=== PATIENT | male | born 1975 | race Caucasian/White ===

== ENCOUNTER → 2021-05-09 09:16 | Outpatient (CLI) | payer BC, SELFPAY ==
--- NOTE | ~2021-05-09 | MR_ITS ---
EXAMINATION: MR lumbar spine wo con EXAM DATE: 05/09/2021 10:10 INDICATION: Back pain, unspecified back location mid/low back pain x 2-3wks, no trauma, no ca . TECHNIQUE: Multi-sequential, multiplanar MR images of the lumbar spine were obtained without contrast . Sagittal T1, T2, T2 fat saturation images. Axial T2 weighted images. There is no prior study for comparison. FINDINGS: There is mild loss of the L5-S1 disc height with annular fissure. Minimal disc disease L3-4 and L4-5. The vertebral body and disc heights are otherwise well maintained. The vertebral bodies ar e aligned in the AP dimension. There are no suspicious marrow signal abnormalities. The conus medulla ris terminates at the T12-L1 level and has normal signal intensity and morphology. Paraspinal soft t issue is unremarkable. Level by level evaluation: T12-L1: Disc does not extend beyond the endplate margin. Facet arthropathy: Mild. Neural foraminal stenosis: No stenosis. Central canal stenosis: No stenosis. L1-L2: Disc does not extend beyond the endplate margin. Facet arthropathy: Mild. Neural foraminal stenosis: No stenosis. Central canal stenosis: No stenosis. L2-L3: Disc does not extend beyond the endplate margin. Facet arthropathy: Mild. Neural foraminal stenosis: No stenosis. Central canal stenosis: No stenosis. L3-L4: There is a minimal diffuse disc bulge. Facet arthropathy: Mild. Neural foraminal stenosis: Minimal bilateral. Central canal stenosis: No stenosis. L4-L5: There is a mild diffuse disc bulge. Facet arthropathy: Mild to moderate. Neural foraminal stenosis: Mild to moderate bilateral. Central canal stenosis: Mild. L5-S1: There is a mild to moderate diffuse disc bulge asymmetric to the right Facet arthropathy: Mild. Neural foraminal stenosis: Mild to moderate left, mild right. Central canal stenosis: No stenosis. IMPRESSION: 1. Mild to moderate lower lumbar spondylosis. Reviewed, dictated and finalized at location A. ATOR SPECIALIST
== END ==
DX: M54.9 Dorsalgia, unspecified (principal); M47.816 Spondylosis without myelopathy or radiculopathy, lumbar region
CPT/HCPCS: 72148

== ENCOUNTER 2021-06-03 17:15 | Emergency (ER) | payer BC, SELFPAY ==
--- NOTE | ~2021-06-03 | XR_ITS ---
EXAMINATION: XR chest 2V DATE: 06/03/2021 17:47 INDICATION: 3 days of cough and fever TECHNIQUE: PA and lateral views of the chest were obtained. COMPARISON: None FINDINGS: Subtle opacities with associated bronchial wall thickening in the infrahilar right lower lobe. Remain rodolfo the lungs are clear. No pleural effusion or pneumothorax. The cardiomediastinal silhouette is nor mal. Visualized bones and soft tissues are unremarkable. IMPRESSION: 1. Bronchial wall thickening and subtle airspace opacities in the right lower lobe suspicious for pne umonia. Reviewed, dictated and finalized at location H. PRODUCTION WORKER IMPRESSION: 1. Bronchial wall thickening and subtle airspace opacities in the right lower l obe suspicious for pneumonia.
[2021-06-03 17:26] VITALS: BP 154/84; PULSE 72; RESP 18; TEMP 37.2; O2SAT 99
--- NOTE | 2021-06-03 17:30 | ED.URI ---
HPI - URI/Sore Throat General Chief Complaint: Upper Respiratory Infection Stated Complaint: Cough,Stuffy Nose, Time Seen by Provider: 06/03/21 17:30 Source: patient Mode of arrival: ambulatory Limitations: no limitations History of Present Illness HPI Narrative: Tu Armas is a 46 yo male with a PMH of HTN, GERD, [facility] with complaints of cough and fever since Tuesday. He has nasal congestion and states that when he sits up perfectly straight his cough is controlled but when he tries to lay down he is coughing frequently and cannot take a deep breath without coughing, sometimes is almost spasm and cannot stop coughing. He has been febrile on Tuesday and has not checked his temperature on Tuesday was low-grade here. No nausea vomiting or diarrhea last Covid vaccination was March 10. Related Data Home Medications Medication Instructions Recorded Confirmed pantoprazole 40 mg PO DAILY 06/03/21 06/03/21 Allergies Allergy/AdvReac Type Severity Reaction Status Date / Time No Known Allergies Allergy Verified 06/03/21 17:22 Review of Systems Review of Systems: CONSTITUTIONAL: Has fever, chills, sweats. EYES: Denies visual changes, redness, discharge. ENT: As rhinorrhea, has congestion, sore throat, otalgia. CARDIOVASCULAR: Denies chest pain, palpitations, edema. RESPIRATORY: Denies dyspnea, wheezing, has cough GASTROINTESTINAL: Denies abdominal pain, nausea, vomiting, diarrhea. GENITOURINARY: Denies dysuria, hematuria, abnormal discharge SKIN: Denies rash or itching. NEUROLOGIC: Denies numbness, or focal weakness. PSYCHIATRIC: Denies anxiety or depression. [facility] Past Medical History Medical History GERD (gastroesophageal reflux disease) HTN (hypertension) Social History Social History (Updated 06/03/21 @ 17:46 by Yadira Calzada CNP) Smoking packs per day: 1 Smoking cigarettes per day: 20.0 Smoking status: Current every day smoker Tobacco type: cigarettes Alcohol intake: current Comments At time of signature, I agree with nursing past medical, surgical, social and family history. There is no relevant family history pertinent to the presenting complaint. Exam Narrative: GENERAL: This is a well-nourished, well-developed patient, in moderate distress. HEAD: normocephalic, atraumatic. EYES: Sclera clear/white. Vision is grossly intact. EARS: External ears normal, auditory canals erythema and without drainage, has bulging TMs. hearing grossly intact. NOSE: External nose normal without nasal discharge, nares without redness, has rhinorrhea. THROAT: Mucous membranes moist, posterior pharynx erythema NECK: Neck supple, non-tender CARDIOVASCULAR: Regular rate and rhythm without murmurs, gallops, or rubs. RESPIRATORY: Coarse to auscultation. Breath sounds equal bilaterally. No wheezes, rales, or rhonchi. GASTROINTESTINAL: Abdomen soft, SKIN: warm, intact with no suspicious lesions or rash, good texture and turgor. NEURO: awake, alert, and oriented to person, place and time. There were no obvious focal neurologic abnormalities. Steady gait EXTREMITIES: Normal range of motion. BACK: Nontender without deformity Course Course Emergency Course: Patient comes with a cough fever and general congestion since Tuesday; has tried using NyQuil and Delsym without success Chest x-ray done- possible RLL pneumonia-microwall thickening and subtle airspace opacities in right lower lobe suspicious for pneumonia Strep done-negative Flu done- negative started on zithromax, steroids, tessalon perles, zyrtec. codeine cough syrup Vital Signs Vital signs: Vital Signs Temperature 99.0 F 06/03/21 17:26 Pulse Rate 72 06/03/21 17:26 Respiratory Rate 18 06/03/21 17:26 Blood Pressure 154/84 H 06/03/21 17:26 Pulse Oximetry 99 06/03/21 17:26 Temperature 99.0 F 06/03/21 17:26 Pulse Rate 72 06/03/21 17:26 Respiratory Rate 18 06/03
== END 2021-06-03 18:10 | disposition home or self-care (01) ==
PROVIDERS: Emergency Provider Nurse Practitioner; PCP Internal Medicine
DX: J18.9 Pneumonia, unspecified organism (principal); K21.9 Gastro-esophageal reflux disease without esophagitis; I10 Essential (primary) hypertension; F17.210 Nicotine dependence, cigarettes, uncomplicated
CPT/HCPCS: 71046; 87081; 87804; 87880; 99203; G0463

== ENCOUNTER 2021-08-19 18:01 | Emergency (ER) | payer BC, SELFPAY ==
--- NOTE | ~2021-08-19 | XR_ITS ---
EXAMINATION: XR chest 2V DATE: 08/19/2021 18:50 INDICATION: Weak and a half of cough TECHNIQUE: frontal and lateral views of the chest were obtained. COMPARISON: Chest radiograph dated 06/03/2021 FINDINGS: The lungs remain clear with no focal airspace opacities, pulmonary edema, pleural effusion or pneumot horax. The cardiomediastinal silhouette is normal. Surgical clips the upper abdomen which may relate to prior cholecystectomy. IMPRESSION: 1. No acute cardiopulmonary disease. Reviewed, dictated and finalized at location A. NT SACK BREAKER
--- NOTE | 2021-08-19 18:05 | ED.URI ---
HPI - URI/Sore Throat General Chief Complaint: Upper Respiratory Infection Stated Complaint: cough Time Seen by Provider: 08/19/21 18:31 Source: patient and RN notes reviewed Mode of arrival: ambulatory Limitations: no limitations History of Present Illness HPI Narrative: 46-year-old male presents concern for cough for 1-1/2 weeks. He reports using leftover prescription cough medicine which helps diminish the cough, however he is on the side of that. He denies nasal congestion, rhinorrhea. Reports sometimes when he coughs hard it caused him to have a headache. He denies any chest pain, shortness of breath. He reports history of pneumonia in May. He reports he is a smoker. He denies body aches, fever, chills, sweats. MD elicited complaint: cough Related Data Home Medications Medication Instructions Recorded Confirmed dextroamphetamine-amphetamine 30 mg PO QID 08/19/21 08/19/21 pantoprazole 40 mg PO DAILY 08/19/21 08/19/21 testosterone cypionate 6 mg DIRECTED 08/19/21 08/19/21 Allergies Allergy/AdvReac Type Severity Reaction Status Date / Time No Known Allergies Allergy Verified 08/19/21 18:30 Review of Systems Review of Systems: CONSTITUTIONAL: Denies malaise, chills, sweats, or fever. EYES: Denies visual changes, redness, or discharge. ENT: Denies rhinorrhea, congestion, sinus pain, otalgia and sore throat. CARDIOVASCULAR: Denies chest pain, palpitations, or edema. RESPIRATORY: Reports cough. Denies dyspnea. GASTROINTESTINAL: Denies abdominal pain, nausea, vomiting, diarrhea SKIN: Denies rash or itching. MUSCULOSKELETAL: Denies myalgia. NEUROLOGIC: Report occasional headache. All systems reviewed & are unremarkable except as noted in HPI and below PMFSH Past Medical History Medical History GERD (gastroesophageal reflux disease) HTN (hypertension) Social History Social History (Updated 06/03/21 @ 17:46 by Yadira Calzada CNP) Smoking packs per day: 1 Smoking cigarettes per day: 20.0 Smoking status: Current every day smoker Tobacco type: cigarettes Alcohol intake: current Comments At time of signature, agree with nursing past medical, surgical, social and family history. There is no relevant family history pertinent to the presenting complaint Exam Narrative: GENERAL: Well-appearing, well-nourished, and in no acute distress. HEAD: Normocephalic EYES: PERRLA, conjunctivae clear ENT: Nares clear. Mucous membranes moist. TM pearly chaudhry with sharp light reflex bilaterally; no tragal tenderness. Oropharynx not erythematous without lesions. Tonsils not enlarged and without exudate, no drooling, no hoarseness, no trismus, uvula midline. NECK: Supple. No lymphadenopathy CHEST: Clear to auscultation, breath sounds equal. No wheezing, rhonchi, rales, or stridor. No respiratory distress, speaks in full sentences. HEART: Regular rate and rhythm. No murmur heard. SKIN: Warm, dry, no rash. NEURO: Alert and oriented x3. PSYCH: Normal mood and affect Course Course Emergency Course: Patient is aware of diagnosis, understands and agrees to treatment plan. Anticipatory guidance given. Patient agrees to follow-up as directed and is aware of reasons to seek care at the emergency department. Portions of this record may have been created with voice recognition software Level of Care: Express Care Visit Vital Signs Vital signs: Vital Signs Temperature 98.7 F 08/19/21 18:15 Pulse Rate 71 08/19/21 18:15 Respiratory Rate 18 08/19/21 18:15 Blood Pressure 155/86 H 08/19/21 18:15 Pulse Oximetry 99 08/19/21 18:15 Temperature 98.7 F 08/19/21 18:15 Pulse Rate 71 08/19/21 18:15 Respiratory Rate 18 08/19/21 18:15 Blood Pressure 155/86 H 08/19/21 18:15 Pulse Oximetry 99 08/19/21 18:15 Reviewed. MDM - URI/Sore Throat MDM Narrative Medical decision making narrative: Differential diagnosis considered: Jay virus, strep
[2021-08-19 18:15] VITALS: BP 155/86; PULSE 71; RESP 18; TEMP 37.1; O2SAT 99
== END 2021-08-19 19:08 | disposition home or self-care (01) ==
PROVIDERS: Emergency Provider Nurse Practitioner
DX: J40 Bronchitis, not specified as acute or chronic (principal); K21.9 Gastro-esophageal reflux disease without esophagitis; I10 Essential (primary) hypertension; F17.210 Nicotine dependence, cigarettes, uncomplicated
CPT/HCPCS: 71046; 99213; G0463

== ENCOUNTER 2024-05-25 16:13 | Emergency (ER) | payer BC, SELFPAY ==
--- NOTE | 2024-05-25 16:16 | ED.URI ---
HPI - URI/Sore Throat General Chief Complaint: Upper Respiratory Infection Stated Complaint: Head Pressure / cough Time Seen by Provider: 05/25/24 16:15 Source: patient Mode of arrival: ambulatory Limitations: no limitations History of Present Illness HPI Narrative: Tu is a 49-year-old male patient presenting to the clinic today with complaints of head congestion and cough x1 day. He reports symptoms started last night. No fevers, chills, or body aches. He denies any chest pain or shortness of breath. States he has head congestion, cough occasionally with runny nose and watery eyes. Has tried taking Mucinex and ibuprofen. MD elicited complaint: sore throat and nasal congestion Related Data Home Medications ?Medication ?Instructions ?Recorded ?Confirmed ?Last Taken ?Type pantoprazole 40 mg tablet,delayed 40 mg PO DAILY 08/19/21 05/25/24 Unknown History release testosterone cypionate 200 mg/mL 6 mg IM DIRECTED 08/19/21 05/25/24 Unknown History intramuscular oil nebivolol 10 mg tablet mg 05/25/24 Unknown History Allergies Allergy/AdvReac Type Severity Reaction Status Date / Time No Known Allergies Allergy Verified 05/25/24 16:24 Review of Systems Review of Systems: Pertinent positives per HPI. Patient denies any fever, chills, rash, headache, visual changes, dizziness, shortness of breath, chest pain, palpitations, nausea, vomiting, diarrhea, constipation, abdominal pain, or any urinary issues. [facility] Past Medical History Medical History GERD (gastroesophageal reflux disease) HTN (hypertension) Social History Social History Smoking packs per day: 1 Smoking cigarettes per day: 20.0 Smoking status: Current every day smoker Tobacco type: cigarettes Alcohol intake: current Comments At the time of my signature, I reviewed and agree with the nursing past medical, surgical, social, and family history. There is no relevant family history pertinent to the patient complaint. Exam Narrative: General: Well-developed, well nourished, in no apparent distress Head: Normocephalic, atraumatic Eyes: Pupils equally round and reactive to light bilaterally, EOM intact, sclera and conjunctive clear, no discharge, lids normal Ears: TMs intact and clear, ear canals clear, no drainage, grossly hearing normal. Nose: Nares patent, clear nasal discharge, no inflammation, no sinus tenderness. Mouth: Oral pharynx without lesions or masses, good dentition, MMM. Postnasal drip Neck: Supple, trachea midline, no enlargement of anterior or posterior cervical nodes, no thyroid masses or goiter palpable. Cardio: Regular rate and rhythm, s1 and s2 normal, no murmur appreciated. Resp: Clear to auscultation bilaterally, no rhonchi, rales, wheezing or rubs Course Course Emergency Course: Portions of this record may have been created with voice recognition software. Level of Care: Express Care Visit Vital Signs Vital signs: Vital signs reviewed MDM - URI/Sore Throat MDM Narrative Medical decision making narrative: At the time of visit patient is resting comfortably on the exam table. Patient appears to be nontoxic. Labs: COVID and influenza testing was performed. Testing was negative. Plan: I suspect patient has URI. Supportive measures were discussed with the patient and they voiced understanding discharge instructions and agrees to treatment plan. Return precautions reviewed Differential Diagnosis Differential diagnosis: Likely upper respiratory infection, otitis media, sinusitis, viral infection, bronchitis, influenza, pharyngitis and other (COVID) Discharge Plan Discharge Clinical Impression: Upper respiratory infection Qualifiers: URI type: unspecified URI Qualified Code(s): J06.9 - Acute upper respiratory infection, unspecified Patient Disposition: Home, Self-Care Condition: Stable Instructions: Antibiotic Form, Cold Symptoms (ED) Additional Instructions: COVID and influenza testing was negative in the clinic today. No sign of bacterial infection. Take prescription medications only as prescribed-prednisone Increase fluids and stay well hydrated Tylenol/motrin for pain/fever Flonase and OTC antihistamines as directed Vicks vapor rub to open sinuses Sinus rinses for congestion Cepacol spray, cough drops, throat lozenges, warm tea with honey/lemon, gargle salt water to soothe throat BRAT diet for diarrhea Clear liquids x 24 hours then advance as tolerated for nausea/vomiting Go to the ED if you develop a worsening in your condition- high fever not controlled by Tylenol or Motrin, dehydration, weakness, lethargy, shortness of breath, or chest pain. Follow up with your PCP in 3-5 days if symptoms persist. Patient Language: Indonesian Prescriptions: New prednisone 20 mg tablet 40 mg PO DAILY 5 Days Qty: 10 0RF No Action pantoprazole 40 mg tablet,delayed release (DR/EC) 40 mg PO DAILY testosterone cypionate 200 mg/mL oil 6 mg IM DIRECTED nebivolol 10 mg tablet Follow-up/Referrals: PHYSICIAN,[facility] [Primary Care Provider] - Time of Disposition: 16:44 Quality NIHSS Nursing Documentation ED NIHSS nursing documentation: reviewed/agree
[2024-05-25 16:20] VITALS: BP 146/72; PULSE 66; RESP 18; TEMP 36.7; O2SAT 100
[2024-05-25 17:56] LABS: EDCOVIDSCREEN Negative (Negative); EDINFLUASCREEN Negative (Negative); EDINFLUBSCREEN Negative (Negative)
--- OUTSIDE RECORDS SUMMARY | 2024-05-29 04:28 | XMS_ITS | Encounter Summary ---
Author Organization [facility] Address [address] [address] [place] [address] Care Team Providers Care Body Art Technician Name Role Phone Tu Green MD Primary Care Provider [phone] Encounter Details Date Type Department Care Team (Latest Contact Info) Description 04/04/2024 Travel Social History Tobacco Use Types Packs/Day Years Used Date Smoking Tobacco: Never Assessed Sex and Gender Information Value Date Recorded Sex Assigned at Not on file Gender Identity Not on file Sexual Orientation Not on file documented as of this encounter Plan of Treatment Not on file documented as of this encounter Visit Diagnoses Not on filedocumented in this encounter Care Teams Body Art Technician Relationship Specialty Start Date End Date Tu Green MD [address] [place] [address] PCP - General Internal Medicine 01/11/19 documented as of this encounter
--- OUTSIDE RECORDS SUMMARY | 2024-05-29 04:28 | XMS_ITS | Encounter Summary ---
Author Organization [facility] Address [address] [place] [address] Care Team Providers Care Dairy Equipment Specialist Name Role Phone Tu Green MD Primary Care Provider [phone] Reason for Visit * Reason Comments Imm Inj tdap Encounter Details Date Type Department Care Team (Late st Contact Info) Description 01/11/2019 7:00 PM CDT Office Visit [facility] [address] [place] [id number] Provider, [facility] Need for Tdap vaccination (Primary Dx) Social History Tobacco Use Types Packs/Day Years Used Date Smoking Tobacco: Never Assessed Sex and Gender Information Value Date Recorded Sex Assigned at Not on file Gender Identity Not on file Sexual Orientation Not on file documented as of this encounter Progress Notes * Esme Millan, BOBBIN CLEANER HAND-SALES SUPPORT ADVISOR - 01/11/2019 5:48 PM CDT [facility] Tu Armas is a 43 year old male who presents for evaluation: Chief Complaint Patient presents with ??? Imm Inj tdap Primary Care Physician is Tu Green MD. SUBJECTIVE: HPI Comments: Patient is here for a TDAP vaccine because he is going to be a new grandfather soon. No past medical history on file. No current outpatient prescriptions on file prior to visit. No current facility-administered medications on file prior to visit. No past surgical history on file. Social History Social History ??? Marital status: Spouse name: N/A ??? Number of children: N/A ??? Years of education: N/A Occupational History ??? Not on file. Social History Main Topics ??? Smoking status: Not on file ??? Smokeless tobacco: Not on file ??? Alcohol use Not on file ??? Drug use: Not on file ??? Sexual activity: Not on file Other Topics Concern ??? Not on file Social History Narrative No family history on file. No current outpatient prescriptions on file. No current facility-administered medications for this visit. Allergies not on file REVIEW OF SYSTEMS: ROS OBJECTIVE: General appearance: alert, well appearing, and in no distress. There were no vitals taken for this visit. Physical Exam No results found for this or any previous visit (from the past 24 hour(s)). ASSESSMENT: Encounter Diagnosis Name Primary? Need for Tdap vaccination Yes PLAN: Orders Placed This Encounter ? ? TDAP VACCINE >7YO IM Medicare will not cover TDAP as a preventative vaccine. Please direct patients to pharmacy for preventative vaccine maintenance. documented in this encounter Plan of Treatment Not on file documented as of this encounter Visit Diagnoses Diagnosis Need for Tdap vaccination- Primary Need for prophylactic vaccination with combined [id number] (DTP) vaccine documented in this encounter Care Teams Dairy Equipment Specialist Relationship Specialty Start Date End Date Tu Green MD [address] [place] [address] [address] [place] [address] PCP - General Internal Medicine 01/11/19 documented as of this encounter
--- OUTSIDE RECORDS SUMMARY | 2024-05-29 04:28 | XMS_ITS | Encounter Summary ---
Author Organization [facility] Address [facility] [facility]. [place], [place] [id number] [place] [id number] Care Team Providers Care Hydraulic Jack Adjuster Name Role Phone None, Provider Primary Care Provider Santosha ble Encounter Details Date Type Department Care Team (Latest Contact Info) Description 10/30/2020 Travel Social History Tobacco Use Types Packs/Day Years Used Date Smoking Tobacco: Every Day Cigarettes 0.5 20 Smokeless Tobacco: Current Chew Alcohol Use Standard Drinks/Week Comments Not Currently 0 (1 standard drink = 0.6 oz pur e alcohol) Sex and Gender Information Value Date Recorded Sex Assigned at Not on file Legal Sex Male 7:16 PM CDT Gender Identity Not on file Sexual Orientation Not on file COVID-19 Exposure Response Date Recorded In the last month, have you been in contact with someone who was confirmed or suspected to have Coronavirus / COVID-19? No / Unsure 10/30/2020 7:17 PM CDT documented as of this encounter Plan of Treatment Not on file documented as of this encounter Visit Diagnoses Not on filedocumented in this encounter Care Teams Hydraulic Jack Adjuster Relationship Specialty Start Date End Date None, Provider, PCP - General 10/30/20 documented as of this encounter
--- OUTSIDE RECORDS SUMMARY | 2024-05-29 04:28 | XMS_ITS | Encounter Summary ---
Author Organization [facility] Address [address] [place] [address] Care Team Providers Care Tea Leaf Reader Name Role Phone Tu Green MD Primary Care Provider [phone] Reason for Referral * Procedure (Routine) - Open Specialty Diagnoses / Procedures Referred By Emily serrano Referred To Contact Gastroenterology Diagnoses Family hx colonic polyps Procedures Endoscopy, Colon, Screening Chivo Fierro MD [address] [facility] [address] [place] [id number] Referral ID Status Reason Start Date Expiration Date Visits Re quested Visits Authorized [id number] Open 02/01/2024 01/31/2025 1 1 Reason for Visit * Reason Onset Date Comments Surgery Scheduling 01/20/2024 Encounter Details Date Type Department Care Team (Late st Contact Info) Description 01/20/2024 Telephone [facility] - GI [address] [facility] [address] [place] [id number] Chivo Fierro MD [address] [facility] [address] [place] [address] Surgery Scheduling Social History Tobacco Use Types Packs/Day Years Used Date Smoking Tobacco: Never Assessed Sex and Gender Information Value Date Recorded Sex Assigned at Not on file Gender Identity Not on file Sexual Orientation Not on file documented as of this encounter Miscellaneous Notes * Telephone Encounter - Libertad Serrano RN - 02/01/2024 9:56 AM CDT Tu Armas HT: 5'5 WT:190 lbs Reason for exam: FH colon polyps No hematochezia or melena, no change in bowel function, no abdominal pain. Past Medical History: Diagnosis Date ADD (attention deficit disorder) Essential (primary) hypertension Hypercholesteremia No past surgical history on file. Current Outpatient Medications: amphetamine-dextroamphetamine (Adderall) 30 MG tablet, , Disp: , Rfl: colesevelam (Welchol) 625 MG tablet, Take 1 (one) tablet by mouth 2 times daily with morning and evening meal, Disp: , Rfl: nebivolol (Bystolic) 10 MG tablet, Take 1 (one) tablet by mouth once daily, Disp: , Rfl: pantoprazole EC (Protonix) 40 MG tablet, Take 1 (one) tablet by mouth once daily, Disp: , Rfl: tadalafil (Cialis) 5 MG tablet, Take 1 (one) tablet by mouth once daily as needed, Disp: , Rfl: testosterone cypionate (Depo-Testosterone) 200 MG/ML injection, , Disp: , Rfl: No Known Allergies Mailed instructions for Suprep.. Verbalizes understanding. * Telephone Encounter - Collins Mark MA - 01/31/2024 1:13 PM CDT Pt will call back to tomorrow with his medication list * Telephone Encounter - Collins Mark MA - 01/31/2024 11:36 AM CDT Attempted to reach pt at preferred number listed. No answer. LMOM for pt to call. * Telephone Encounter - Sharron Tilley - 01/23/2024 8:13 AM CDT Insurance card received and given to registration to upload into [employer]. * Telephone Encounter - Sharron Tilley - 01/20/2024 3:00 PM CDT Pt calling to schedule his first screening colonoscopy due to FHX colon polyps in brother. He is emailing me his [email or web address] card. He denies any GI issues. documented in this encounter Plan of Treatment Not on file documented as of this encounter Procedures Procedure Name Priority Date/Time Associated Diagnosis Comments ENDOSCOPY, COLON, SCREENING Routine 04/03/2024 Family hx colonic polyps documented in this encounter Results * Endoscopy, Colon, Screening (04/03/2024) Chivo Fierro MD GI PROCEDURE ORDERAB LES documented in this encounter Visit Diagnoses Diagnosis Family hx colonic polyps- Primary Family history of colonic polyps documented in this encounter Care Teams Tea Leaf Reader Relationship Specialty Start Date End Date Tu Green MD [address] [facility] [address] [place] [address] PCP - General Internal Medicine 01/11/19 documented as of this encounter
--- OUTSIDE RECORDS SUMMARY | 2024-05-29 04:28 | XMS_ITS | Continuity of Care Document ---
Author Organization [facility] Address [address] [place] [id number] Encounter [facility] Financial Number [id number] Date(s): 05/31/22 - 05/31/[address] [phone] Discharge Disposition: Home or Self Care Attending Physician: Shon Shepherd DO Admitting Physician: Shon Shepherd DO Referring Physician: Shon Shepherd DO MR Upper extremity.joint W contrast IV * Event Display: CDI MR UE Joint w/Contrast Authored Date: [id number] * Event Display: CDI MR UE Joint w/Contrast Authored Date: [id number] [facility] FOR [facility]AG[facility] Completed on: 05/31/2022 11:53 AM (CT) EXAM: MRI EXTREM UPPER JT W/CON RIGHT HISTORY: Shoulder pain TECHNIQUE: Multiplanar, multisequence MRI of the right shoulder was performed after arthrogram on a 1.5 Joan magnet. There is no comparison. FINDINGS: There is a type I acromion without a subacromial spur. There is mild acromioclavicular osteoarthritis. There is trace subacromial/subdeltoid bursitis. There is no contrast within the subacromial/subdeltoid bursa. The rotator cuff tendons are normal in size and signal without tendinopathy or tear. There is no partial-thickness undersurface tear or full-thickness rotator cuff tendon tear. The muscles of the rotator cuff demonstrate normal bulk and signal without edema or fatty atrophy. Contrast is present within the glenohumeral joint. The intra-articular long head biceps tendon is intact. There is a tear of the superior, posterior and inferior labrum. Tiny paralabral cysts are noted about the posterior inferior glenoid. These spans 2.5 cm in the craniocaudal dimension. There is some fraying of the anterior inferior labrum. There is no chondral defect about the glenohumeral joint. There is no subchondral cyst or subchondral edema. The marrow signal is normal. IMPRESSION: Essentially circumferential tear of the labrum of the right shoulder with tiny paralabral cysts posteriorly. Read by: Jhonatan Perry M.D. Reviewed and Electronically Signed by: Jhonatan Perry M.D.
--- OUTSIDE RECORDS SUMMARY | 2024-05-29 04:28 | XMS_ITS | Referral Summary ---
Author Organization [facility] Address [address] [place] [address] Care Team Providers Care Brand Marketing Specialist Name Role Phone Tu Green MD Primary Care Provider [phone] Source Comments [facility] [employer],non-owned Affiliates and Associated Physician Practices is amultiple site organization consisting of ambulatory clinics and hospital sitesin [place], [place], [place] and [place]. This disclosure is being madepursuant to the Care Everywhere program and may not contain all information available regarding this patient. Last updated 18.[facility] Encounters Date Type Department Care Team Description 04/04/2024 12:12 PM CDT - 04/04/2024 11:59 PM CDT Hospital Encounter [facility] [address] [place] [address] Chivo Fierro MD Discharge Disposition: Home or Self Care 04/04/2024 Travel from Last 3 Months Allergies No known active allergies Medications * Be aware that medications may not be up to date on this document. Alwaysverify current medications with the patient. Medication Sig Dispensed Refills Start Date End Date Status colesevelam (Welchol) 625 MG tablet Take 1 (one) tablet by mouth 2 times daily with morning and evening meal 10/30/2023 Active pantoprazole EC (Protonix) 40 MG tablet Take 1 (one) tablet by mouth once daily 12/05/2023 Active nebivolol (Bystolic) 10 MG tablet Take 1 (one) tablet by mouth once daily 01/05/2024 Active tadalafil (Cialis) 5 MG tablet Take 1 (one) tablet by mouth once daily as needed 09/08/2023 Active testosterone cypionate (Depo-Testosterone) 200 MG/ML injection 12/05/2023 Activ e amphetamine-dextroam phetamine (Adderall) 30 MG tablet 01/09/2024 Active NA-K-MG sulfates (Suprep Bowel Prep Kit) 17.5-3.13-1.6 GM/177ML solution Please use the directions that have been provided by your physician's office. 1 kit 02/01/2024 Active Active Problems Problem Noted Date Diagnosed Date Diverticulosis of colon 04/05/2024 History of adenomatous polyp of colon 04/05/2024 Overview (04/05/2024): Dr. Fierro/GI 04/05 Family hx colonic polyps - brothers 04/03/2024 Overview (04/03/2024): Brothers Immunizations Name Administration Dates Next Due TDAP (7yrs+) 01/11/2019 Social History Tobacco Use Types Packs/Day Years Used Date Smoking Tobacco: Never Assessed Sex and Gender Information Value Date Recorded Sex Assigned at Not on file Gender Identity Not on file Sexual Orientation Not on file Plan of Treatment Not on file Procedures Procedure Name Priority Date/Time Associated Diagnosis Comments PATHOLOGY TISSUE EXAM (STL) Routine 04/03/2024 2:54 PM CDT Family hx colonic polyps - brothers ENDOSCOPY, COLON, SCREENING Routine 04/03/2024 Family hx colonic polyps from Last 3 Months Results * PATHOLOGY TISSUE EXAM (STL) (04/03/2024 2:54 PM CDT) Case Report Surgical Pathology Report ? Case: [id number] ? Authorizing Provider: ??Chivo Fierro MD ?Collected: ? 04/03/2024 02:54 PM ? Ordering Location: ? [facility] ?Received: ?04/04/2024 12:14 PM ? Pathologist: ? Guera Iyer MD ? Specimens: ?? A) - Polyp Ascending ? B) - Polyp Sigmoid ? 04/05/2024 9:20 AM [facility] Final Diagnosis Ascending colon, polypectomy: Tubular adenoma(s) x1 - Negative for high-grade dysplasia Sigmoid colon, polypectomy: Benign nonneoplastic colorectal mucosa consistent with mucosal fold No epithelial lesion/dysplasia 04/05/2024 9:20 AM [facility] Clinical History 3 mm ascending polyp, diminutive mid sigmoid polyp and moderate diverticulosis 04/05/2024 9:20 AM [facility] Gross Description 2 formalin filled specimen containers received. Specimen A labeled ? ascending polyp? consists of a 3 mm thornton polypoid tissue fragment, submitted in toto in A1. Specimen B labeled ? sigmoid polyp? consists of a 2 mm thornton polypoid tissue fragment, submitted in toto in B1. 04/05/2024 9:20 AM [facility] Pathologist Location at [facility] 04/05/2024 9:20 AM [facility] Disclaimer All histochemical and/or immunohistochemical results are interpreted with controls that demonstrate appropriate staining reactions before reporting results. Note on use of immunocytochemistry reagents: This test was developed and its performance characteristic determined by [facility], Department of Laboratory Medicine. It has not been cleared or approved by the U.S. Food and Drug Administration (FDA). The FDA has determined that such clearance or approval is not necessary. The test is used for clinical purpose. It should not be regarded as investigational or for research. This laboratory is certified to perform high complexity testing. The performance characteristics of the IHC/PIEDAD assays have been validated on formalin-fixed paraffin embedded tissues only. The assays have not been validated on decalcified tissues. Results should be interpreted with caution. 04/05/2024 9:20 AM CDT [facility] Embedded Images 04/05/2024 9:20 AM CDT [facility] Pathology/Cytology POLYP OF SIGMOID COLON / Unknown 04/03/2024 2:54 PM CDT 04/04/2024 12:14 PM CDT Miscellaneous samples (specimen) POLYP OF SIGMOID COLON / Unknown 04/03/2024 2:54 PM CDT 04/04/2024 12:14 PM CDT Chivo Fierro MD LAB - PATHOLOGY/CYTO LOGY ORDERABLES [facility] [address] [place] [id number] * Endoscopy, Colon, Screening (04/03/2024) Chivo Fierro MD GI PROCEDURE ORDERAB LES from Last 3 Months Care Teams Brand Marketing Specialist Relationship Specialty Start Date End Date Tu Green MD [address] [place] [id number] PCP - General Internal Medicine 01/11/19
--- OUTSIDE RECORDS SUMMARY | 2024-05-29 04:28 | XMS_ITS | Clinical Summary ---
Author Organization [facility] Address [address] [place] [address]. [place], [place] [id number] [place] [address] Care Team Providers Care Reliability Technician Name Role Phone None, Provider Primary Care Provider Unavaila ble Allergies No known active allergies Social History Tobacco Use Types Packs/Day Years [...] on file Sexual Orientation Not on file Last Filed Vital Signs Vital Sign Reading Time Taken Comments Blood Pressure 154/90 10/30/2020 9:30 PM CDT Pulse 79 10/30/2020 9:30 PM CDT Temperature 37.6 ??C (99.7 ??F) 10/30/2020 7:48 PM CD T Respiratory Rate 20 10/30/2020 9:30 PM CDT Oxygen Saturation 95% 10/30/2020 10:35 PM CDT Inhaled Oxygen Concentration - - Weight 81.6 kg (180 lb) 10/30/2020 7:26 PM CDT Height 162.6 cm (5' 4 ) 10/30/2020 7:26 PM CDT Body Mass Index 30.9 10/30/2020 7:26 PM CDT Plan of Treatment Health Maintenance Due Date Last Done Comments Colorectal Cancer Screening Colonoscopy (10 Years) 1977 Annual Physical 1980 Pneumococcal Vaccine: Pediatrics (0 to 5 Years) and At-Risk Patients (6 to 64 Years) (1 of 2 - PCV) 1983 Hepatitis C 1995 Hepatitis B Vaccines (1 of 3 - 19+ 3-dose series) 1996 COVID-19 Vaccine (2023-2 5 season) 2024 Influenza Adult (#1) 2024 DTaP, Tdap and Td Vaccines ( 3 - Td or Tdap) 01/11/2029 01/11/2019, 10/03/2018 Meningococcal Vaccine Aged Out No sherlyn chelsy eligible based on patient's age to complete this topic RSV Immunizations Under 20 Months Aged Out No longer eligible b ased on patient's age to complete this topic Insurance [facility] Care Teams Reliability Technician Relationship Specialty Start Date End Date None, Provider, PCP - General 10/30/20
--- OUTSIDE RECORDS SUMMARY | 2024-05-29 04:28 | XMS_ITS | Encounter Summary ---
Author Organization [facility] Address Counts include 234 beds at the [facility] [place] [place] [address] [place] [address] Care Team Providers Care Recruitment Manager Name Role Phone None, Provider Primary Care Provider Unavaila ble Reason for Visit * Reason Comments Chest Pain Hiccups Back Pain Shortness Of Breath Encounter Details Date Type Department Care Team (Late st Contact Info) Description 10/30/2020 7:18 PM CDT - 10/30/2020 10:45 PM CDT Emergency [facility] Emergency Room [place], [place] [id number] Reg Browning MD [address] [place] [address] [id number] Chest Pain; Hiccups; Back Pain; Shortness Of Breath Discharge Disposition: Home or Self Care (Routine Discharge) Social History Tobacco Use Types Packs/Day Years [...] PM CDT documented as of this encounter Last Filed Vital Signs Vital Sign Reading [...] Mass Index 30.9 10/30/2020 7:26 PM CDT documented in this encounter Discharge Instructions * Discharge Instructions* Keagan Mars DO - 10/30/2020 10:25 PM CDT Continue all home medications and treatments. Go to appointment with Dr. Bunn on October 31 at 11 AM. Return to the emergency room if chest pain worsens or experience shortness of breath, diaphoresis or nausea with chest pain. * Attachments The following attachments cannot be sent through Care Everywhere. * Chest Pain (Tristanian) * Chest Pain Discharge Instructions (Tristanian) * Troponin Test (Tristanian) documented in this encounter ED Notes * Reg Browning MD - 10/30/2020 8:03 PM CDT EMERGENCY DEPARTMENT ENCOUNTER Chief Complaint Chief Complaint Patient presents with ??? Chest Pain ??? Hiccups ??? Back Pain ??? Shortness Of Breath History of Present Illness Provider at Bedside Date/Time Event User Comments 10/30/201930 Provider at Bedside Assessing Patient RUTH SOFIA 45-year-old male past medical history of hypertension and GERD presents with 1 week history of chest pain. No identifiable causes of pain. Pain is described as tight and located in lower bilateral chest. Pain is not worsened by exertion. patient is also experiencing shortness of breath, productive cough, headache, hiccups. He had similar symptoms 3 to 4 years ago at which time he was diagnosed with pneumonia. He is also currently experiencing heartburn. Patient smokes half pack per day and uses 1 can of dipping tobacco per day. He denies alcohol and illicit drug use Medical History ALLERGIES: No Known Allergies MEDICATIONS: Prior to Admission medications Not on File PAST MEDICAL HISTORY: Past Medical History: Diagnosis Date ??? GERD (gastroesophageal reflux disease) ??? Hypertension PAST SURGICAL HISTORY: History reviewed. No pertinent surgical history. FAMILY HISTORY: No family history on file. SOCIAL HISTORY: Social History Tobacco Use ??? Smoking status: Current Every Day Smoker Packs/day: 0.50 Years: 20.00 Pack years: 10.00 Types: Cigarettes ??? Smokeless tobacco: Current User Types: Chew Substance Use Topics ??? Alcohol use: Not Currently ??? Drug use: Not Currently Review of Systems Constitutional: Negative for chills and fever. Eyes: Negative for vision changes ENT: Negative for stridor, difficulty swallowing, or pain with swallowing. Respiratory: Positive for cough and shortness of breath. Cardiovascular: Positive for chest pain, Negative for leg swelling Gastrointestinal: Positive for bilateral upper abdominal pain, Negative for nausea or vomiting Genitourinary: Negative for flank pain, Negative for dysuria Musculoskeletal: Negative for back pain, Negative for joint swelling Neurological: Negative for dizziness and positive for headaches Integumentary: Negative for rash or wounds All other systems reviewed and are negative except as in HPI and as noted above Physical Exam Filed Vitals: 10/30/20201410/30/20 2045 10/30/20 2130 10/30/20 2235 BP: (!) 152/106 (!) 166/95 (!) 154/90 Pulse: 84 85 79 Resp: 20 16 20 Temp: TempSrc: SpO2: 95% 96% 95% 95% Weight: Height: CONSTITUTIONAL: Patient is awake, alert, in no acute distress, conversant HEAD AND FACE: Normocephalic, atraumatic EYES: EOMI, PERRL NECK: Supple, no JVD CARDIOVASCULAR: RRR, normal S1-S2, no clicks murmurs rubs or gallops are appreciated RESPIRATORY: No respiratory distress or tachypnea, clear to auscultation bilaterally without rales,rhonchi, wheezes ABDOMEN: Soft, nondistended, tender to palpation in LUQ, RUQ and epigastrium NEUROLOGIC: GCS 15, CN2-12 grossly intact, moves all extremities EXTREMITIES: Warm, no edema Diagnostic Studies / Procedures ELECTROCARDIOGRAMS: EKG sinus rhythm Rate 82, normal sinus rhythm, no ectopy, normal intervals, normal axis, no ST-T wave changes Interpretation by me: no acute ischemic changes LABORATORY STUDIES: Results for orders placed or performed during the hospital encounter of 10/30/20 CBC W/DIFF AUTOMATED Result Value Ref Range WBC 9.0 4.5 - 11.0 x10'3/uL RBC 5.50 4.70 - 6.10 x10'6/uL HGB 15.9 14.0 - 18.0 G/DL HCT 48.6 43.0 - 54.0 % MCV 88.4 80.0 - 94.0 FL MCH 28.9 27.0 - 31.0 PG MCHC 32.7 32.0 - 36.0 G/DL RDW 13.1 11.5 - 14.5 % PLT 291 130 - 400 x10'3/uL MPV 11.0 9.3 - 12.2 FL DIFFERENTIAL TYPE AUTOMATED DIFFERENTIAL NEUTROPHILS 71.9 % LYMPHOCYTES 14.7 % MONOCYTES 9.6 % EOSINOPHILS 2.4 % BASOPHILS 0.7 % IMMATURE GRANS 0.7 % ABS. NEUTROPHILS TOTAL 6.50 1.80 - 7.70 x10'3/uL ABS. LYMPHOCYTES 1.33 1.00 - 4.80 x10'3/uL ABS. MONOCYTES 0.87 (H) 0.30 - 0.82 x10'3/uL ABS. EOSINOPHILS 0.22 0.04 - 0.54 x10'3/uL ABS. BASOPHILS 0.06 0.01 - 0.08 x10'3/uL ABS. IMMATURE GRANULOCYTES 0.06 0.00 - 0.49 x10'3/uL COMPREHENSIVE METABOLIC PANEL Result Value Ref Range GLUCOSE 88 70 - 99 MG/DL BUN 15 7 - 18 MG/DL CREATININE S/P/B 1.52 (H) 0.7 - 1.3 MG/DL SODIUM 136 136 - 145 MMOL/L POTASSIUM 4.0 3.5 - 5.1 MMOL/L CHLORIDE S/P/B 107 100 - 108 MMOL/L CO2 25.2 21 - 32 MMOL/L CALCIUM 8.6 8.5 - 10.1 MG/DL BILIRUBIN TOTAL S/P/B 0.4 0.2 - 1.2 MG/DL TOTAL PROTEIN S/P/B 7.6 6.4 - 8.2 G/DL ALBUMIN S/P/B 3.7 3.4 - 5.0 G/DL AST 73 (H) 15 - 37 U/L ALT 66 (H) 16 - 60 U/L ALKALINE PHOSPHATASE S/P/B 57 50 - 136 U/L ANION GAP 3.8 (L) 5 - 15 MMOL/L BUN CREATININE RATIO 9.9 6 - 26 A/G RATIO 0.9 (L) 1.0 - 2.0 RATIO eGFR Non-Afr. Amer. 55 (L) >90 ML/MIN/1.73 M2 eGFR Afr. Amer. 64 (L) >90 ML/MIN/1.73 M2 TROPONIN, QUANT Result Value Ref Range TROPONIN I <0.015 <0.045 ng/mL. TROPONIN, QUANT Result Value Ref Range TROPONIN I <0.015 <0.045 ng/mL. IMAGING STUDIES XR CHEST PORTABLE Final Result by User, [id number] (10/30 2001) Exam: Chest x-ray No comparison INDICATION: 4 days of chest pain, hiccups, and shortness of breath. TECHNIQUE: One view FINDINGS: Normal heart and pulmonary vessel size. The lungs are clear. No interstitial edema, hyperinflation, or pleural fluid. No pneumothorax. No acute bone findings. Mild degenerative changes at the acromioclavicular joints. IMPRESSION: No acute chest findings. Referred By: Interpreted By: Romulo Roe MD, 10/30/2020 7:57 PM ED Course / Medical Decision Making Patient presenting with a chief complaint of chest pain. In the differential diagnosis I consideredMI/NSTEMI, GERD, pneumonia, PE, costochondritis, pneumothorax, electrolyte derangement, metabolic derangement. I reviewed the patient's labs, which are significant for Creatinine 1.52 and are otherwise unremarkable, as above I reviewed the radiologist's interpretation of the patient's radiologic diagnostics (chest x-ray), which is unremarkable, as above I reviewed the patient's EKG, as above I reviewed old medical records, obtained from care everywhere, as well as internal past medical records I interpreted the patient's pulse oximeter at rest, which is 96% on room air, which is normal and determined that this patient is not hypoxic I interpreted the patient's threat monitoring analyst as showing a sinus rhythm and hemodynamic stability The elements of the HPI, review of systems, past medical history, past surgical history, past family history, social history, medication list, allergies, and examination documented above were personally obtained by me via direct interaction of the patient when possible, with the exception of circumstances or patient factors limiting my ability to do so, as above. In instances where nursing or other providers documented this information prior to my encounter, I personally confirmed the accuracy of this information to the best of my ability given the circumstances. Medications aspirin chewable tablet 324 mg (324 mg Oral Given 10/30/202038) maalox plus-lidocaine viscous (GI COCKTAIL PLAIN) 45 mL suspension ( Oral Given 10/30/202039) sodium chloride 0.9% bolus infusion SOLN 1,000 mL (0 mLs Intravenous Infusion Stop Time 10/30/202234) albuterol sulfate HFA 108 (90 Base) MCG/ACT inhaler 2 puff (2 puffs Inhalation Given 10/30/202234) Clinical Impression Chest pain (Primary) Hiccups There are no discharge medications for this patient. Disposition: Discharge home Patient provided with printed and verbal discharge care instructions and was instructed to return to the emergency department immediately with worsening symptoms or new worrisome symptoms. Patient was instructed to follow-up with primary care physician within 1 week for further evaluation and treatment. Diagnoses & treatment discussed with patient Patient expressed understanding and agreed. Outpatient referral to cardiology . Patient provided with phone number to call for an appointment. Patient instructed to call on the next business day during business hours. Patient informed that he should be evaluated by this specialist within 1 week In my judgement, the evaluation and treatment of this patient, while thorough and complete to the best of my abilities, is potentially limited by the reduced resources available due to the COVID-19 pandemic. Keagan Mars, DO Family Medicine, PGY-1 Resident - Physician Attestation I saw and evaluated the patient. I reviewed the resident's note and agree. I discussed the history,physician exam and plan with the resident and we have formulated a plan of care. I have reviewed the following information: - Labs 2 - troponins less than 0.015. Sodium 136 potassium 4.0 chloride 1.7 CO2 25 BUN 15 creatinine 1.52 glucose 88 WBC 9 hemoglobin 15.9 hematocrit 40.6 platelets 291 - Imaging chest x-ray: No acute chest findings - EKG normal sinus rhythm. Heart rate 82. Normal axis normal normal QRS nonspecific ST-T wave changes. No old EKG to compare hall monitor. 192: Normal sinus rhythm. Heart rate 82. No ectopy I performed an independent physical exam: I personally saw and examined the patient. Agree with 's assessment and plan. Patient resting comfortably on stretcher no acute distress. Patient had 2 - troponins had no EKG changes. Plan: Patient was discharged home. Appointment was arranged for him to see shipyard painter tomorrow October 31, 2020 at 11 AM. He and his are both informed of this and strict return emergencydepartment if they have any problems or concerns. Reg Browning MD 10/30/20 2250 * Ned Kay RN - 10/30/2020 7:43 PM CDT Patient ambulatory to ED from home with complaint of chest pain back pain hiccups and SOB per patient he has had this in the past and it was pneumonia, patient has been experiencing all symptoms for past 4 days with no relief. Ned Kay RN documented in this encounter Plan of Treatment Not on file documented as of this encounter Procedures Procedure Name Priority Date/Time Associated Diagnosis Comments TROPONIN, QUANT STAT 10/30/2020 10:02 PM CDT XR CHEST PORTABLE STAT 10/30/2020 7:5 7 PM CDT ECG 12-LEAD STAT 10/30/2020 7:22 PM CDT COMPREHENSIVE METABOLIC PANEL STAT 10/30/2020 7:22 PM CDT CBC W/DIFF AUTOMATED STAT 10/30/2020 7:22 PM CDT TROPONIN, QUANT STAT 10/30/2020 7:22 PM CDT documented in this encounter Results * TROPONIN, QUANT (10/30/2020 10:02 PM CDT) TROPONIN I <0.015 <0.045 ng/mL. 10/30/2020 10:40 PM CDT [facility] Comment: HIGH DOSES OF BIOTIN MAY INTERFERE WITH THIS TEST RESULT. CORRELATION TO CLINICAL HISTORY AND PRESENTATION RECOMMENDED. 10/30/2020 10:0 2 PM CDT Reg Browning MD LABORATORY Final Result [facility] [address] [place] [address], [place] [phone] * XR CHEST PORTABLE (10/30/2020 7:57 PM CDT) Anatomical Region Laterality Modality Chest Radiographic Leena ging 10/30/2020 7:57 PM CDT Impressions 10/30/2020 8:01 PM CDT IMPRESSION: No acute chest findings. Referred By: ?? Interpreted By: Romulo Roe MD, 10/30/2020 7:57 PM Narrative 10/30/2020 8:01 PM CDT Exam: Chest x-ray No comparison INDICATION: 4 days of chest pain, hiccups, and shortness of breath. TECHNIQUE: One view FINDINGS: Normal heart and pulmonary vessel size. The lungs are clear. No interstitial edema, hyperinflation, or pleural fluid. No pneumothorax. No acute bone findings. Mild degenerative changes at the acromioclavicular joints. Procedure Note Romulo Roe MD - 10/30/2020 Exam: Chest x-ray No comparison INDICATION: 4 days of chest pain, hiccups, and shortness of breath. TECHNIQUE: One view FINDINGS: Normal heart and pulmonary vessel size. The lungs are clear. Nointerstitial edema, hyperinflation, or pleural fluid. No pneumothorax. Noacute bone findings. Mild degenerative changes at the acromioclavicularjoints. IMPRESSION: No acute chest findings. Referred By: Interpreted By: Romulo Roe MD, 10/30/2020 7:57 PM us Reg Browning MD GENERAL IMAGING Final Result * ECG 12 lead (10/30/2020 7:22 PM CDT) 10/30/2020 7:22 PM CDT Narrative [facility] - 10/30/2020 10:09 PM CDT ?[facility] ? [address] [facility] [place] [facility] [place] ? Test Date: ?2020-10-30 Pat Name: ? MARGARET SOLANO ? Department: ? Room: ? EXAM16 Gender: ? 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 LP : ?1975 ? Requested By: REG BROWNING Order Number: [id number] ? Reading : ?? Lexy Yanez ? Measurements Intervals ?[place] ? Rate: ? 82 ? P: ?16 WA: ? 133 ?QRS: ?47 QRSD: ? 94 ? T: ?28 QT: ? 332 ? QTc: ?389 ? Interpretive Statements SINUS RHYTHM No previous ECG available for comparison Procedure Note Lexy Yanez MD - 10/30/2020 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 10/30/2020 8:32 PM CDT [facility] Comment: HIGH DOSES OF BIOTIN MAY INTERFERE WITH THIS TEST RESULT. CORRELATION TO CLINICAL HISTORY AND PRESENTATION RECOMMENDED. 10/30/2020 7:22 PM CDT Reg Browning MD LABORATORY Final Result [facility] [address] [place] [id number], [place] [phone] * (ABNORMAL) COMPREHENSIVE METABOLIC PANEL (10/30/2020 7:22 PM CDT) Pathologist [facility] GLUCOSE 88 70 - 99 MG/DL 10/30/2020 8:32 PM CDT [facility] BUN 15 7 - 18 MG/DL 10/30/2020 8:32 PM CDT [facility] CREATININE S/P/B 1.52(H) 0.7 - 1.3 MG/DL 10/30/2020 8:32 PM CDT [facility] SODIUM S/P/B 136 136 - 145 MMOL/L 10/30/2020 8:32 PM CDT [facility] POTASSIUM S/P/B 4.0 3.5 - 5.1 MMOL/L 10/30/2020 8:32 PM CDT [facility] CHLORIDE S/P/B 107 100 - 108 MMOL/L 10/30/2020 8:32 PM CDT [facility] CO2 25.2 21 - 32 MMOL/L 10/30/2020 8:32 PM CDT [facility] CALCIUM S/P/B 8.6 8.5 - 10.1 MG/DL 10/30/2020 8:32 PM CDT [facility] BILIRUBIN TOTAL S/P/B 0.4 0.2 - 1.2 MG/DL 10/30/2020 8:32 PM CDT [facility] Comment: THIS ASSAY IS NOT RECOMMENDED FOR PATIENTS UNDERGOING TREATMENT WITH ELTROMBOPAG DUE TO THE POTENTIAL FOR FALSELY ELEVATED RESULTS. TOTAL PROTEIN S/P/B 7.6 6.4 - 8.2 G/DL 10/30/2020 8:32 PM CDT [facility] ALBUMIN S/P/B 3.7 3.4 - 5.0 G/DL 10/30/2020 8:32 PM CDT [facility] AST 73(H) 15 - 37 U/L 10/30/2020 8:32 PM CDT [facility] ALT 66(H) 16 - 60 U/L 10/30/2020 8:32 PM CDT [facility] ALKALINE PHOSPHATASE S/P/B 57 50 - 136 U/L 10/30/2020 8:32 PM CDT [facility] ANION GAP 3.8(L) 5 - 15 MMOL/L 10/30/2020 8:32 PM CDT [facility] BUN CREATININE RATIO 9.9 6 - 26 10/30/2020 8:32 PM CDT [facility] A/G RATIO 0.9(L) 1.0 - 2.0 RATIO 10/30/2020 8:32 PM CDT [facility] EGFR NON-AFR. AMER. 55(L) >90 ML/MIN/1.7 3 M2 10/30/2020 8:32 PM CDT [facility] EGFR AFR. AMER. 64(L) >90 ML/MIN/1.7 3 M2 10/30/2020 8:32 PM CDT [facility] Comment: NOTE: eGFR is not calculated for patients <18 years of age. This is an estimated GFR (CKD EPI) and should not be used for calculating drug doses. 10/30/2020 7:22 PM CDT Reg Browning MD LABORATORY Final Result [facility] [address] [place] [id number], [place] [phone] * (ABNORMAL) CBC W/DIFF AUTOMATED (10/30/2020 7:22 PM CDT) WBC 9.0 4.5 - 11.0 x10'3/uL 10/30/2020 8:10 PM CDT [facility] RBC 5.50 4.70 - 6.10 x10'6/uL 10/30/2020 8:10 PM CDT [facility] HGB 15.9 14.0 - 18.0 G/DL 10/30/2020 8:10 PM CDT [facility] HCT 48.6 43.0 - 54.0 % 10/30/2020 8:10 PM CDT [facility] MCV 88.4 80.0 - 94.0 FL 10/30/2020 8:10 PM CDT [facility] MCH 28.9 27.0 - 31.0 PG 10/30/2020 8:10 PM CDT [facility] MCHC 32.7 32.0 - 36.0 G/DL 10/30/2020 8:10 PM CDT [facility] RDW 13.1 11.5 - 14.5 % 10/30/2020 8:10 PM CDT [facility] PLT 291 130 - 400 x10'3/uL 10/30/2020 8:10 PM CDT [facility] MPV 11.0 9.3 - 12.2 FL 10/30/2020 8:10 PM CDT [facility] DIFFERENTIAL TYPE AUTOMATED DIFFERENTIAL 10/30/2020 8:10 PM CDT [facility] NEUTROPHILS % 71.9 % 10/30/2020 8:10 PM CDT [facility] LYMPHOCYTES % 14.7 % 10/30/2020 8:10 PM CDT [facility] MONOCYTES % 9.6 % 10/30/2020 8:10 PM CDT [facility] EOSINOPHILS 2.4 % 10/30/2020 8:10 PM CDT [facility] BASOPHILS 0.7 % 10/30/2020 8:10 PM CDT [facility] IMMATURE GRANS % 0.7 % 10/31/19 8:10 PM CDT [facility] ABS. NEUTROPHILS TOTAL 6.50 1.80 - 7.70 x10'3/uL 10/30/2020 8:10 PM CDT [facility] ABS. LYMPHOCYTES 1.33 1.00 - 4.80 x10'3/uL 10/30/2020 8:10 PM CDT [facility] ABS. MONOCYTES 0.87(H) 0.30 - 0.82 x10'3/uL 10/30/2020 8:10 PM CDT [facility] ABS. EOSINOPHILS 0.22 0.04 - 0.54 x10'3/uL 10/30/2020 8:10 PM CDT [facility] ABS. BASOPHILS 0.06 0.01 - 0.08 x10'3/uL 10/30/2020 8:10 PM CDT [facility] ABS. IMMATURE GRANULOCYTES 0.06 0.00 - 0.49 x10'3/uL 10/30/2020 8:10 PM CDT [facility] 10/30/2020 7:22 PM CDT Reg Browning MD LABORATORY Final Result [facility] [address] [place] [address], [place] [phone] documented in this encounter Visit Diagnoses Diagnosis Chest pain- Primary Chest pain, unspecified Hiccups Hiccough documented in this encounter Administered Medications Inactive Administered Medications - up to 3 most recent administrations Medication Order MAR Action Action Date Dose Rate Site albuterol sulfate HFA 108 (90 Base) MCG/ACT inhaler 2 puff 2 puff, Inhalation, Once, 1 dose, On Eve 10/30/20 at 2230 Given 10/30/2020 10:35 PM CDT 2 puffs aspirin chewable tablet 324 mg 324 mg, Oral, Once, 1 dose, On Eve 10/30/20 at 1930, If not given by EMS or taken immediately prior to arrival Given 10/30/2020 8:39 PM CDT 324 mg maalox plus-lidocaine viscous (GI COCKTAIL PLAIN) 45 mL suspension Oral, Once, 1 dose, On Eve 10/30/20 at 2015 Given 10/30/2020 8:40 PM CDT sodium chloride 0.9% bolus infusion SOLN 1,000 mL 1,000 mL, Intravenous, Administer over 15 Minutes, Once, 1 dose, On Eve 10/30/20 at 2100 New Bag 10/30/2020 9:05 PM CDT 1,000 mLs documented in this encounter Active and Recently Administered Medications Times are shown in CDT. Scheduled Medication Order 10/28/2020 10/29/2020 10/30/2020 albuterol sulfate HFA 108 (90 Base) MCG/ACT inhaler 2 puff (COMPLETED) 2 puff, Inhalation, Once, 1 dose, On Eve 10/30/20 at 2230 2235 (Given - Provid er: Dominga Rosado, WAREHOUSE ATTENDANT) aspirin chewable tablet 324 mg (COMPLETED) 324 mg, Oral, Once, 1 dose, On Eve 10/30/20 at 1930, If not given by EMS or taken immediately prior to arrival 2038 (Given - Provid er: Temo España RN) maalox plus-lidocaine viscous (GI COCKTAIL PLAIN) 45 mL suspension (COMPLETED) Oral, Once, 1 dose, On Eve 10/30/20 at 2014 2039 (Given - Provid er: Temo España RN) sodium chloride 0.9% bolus infusion SOLN 1,000 mL (COMPLETED) 1,000 mL, Intravenous, Administer over 15 Minutes, Once, 1 dose, On Eve 10/30/20 at 2100 2105 (New Bag - Prov ider: Temo España RN)2234 (Infusion Stop Time - Provider: Svetlana Henao, MARIANO) documented in this encounter Care Teams Recruitment Manager Relationship Specialty Start Date End Date None, Provider, PCP - General 10/30/20 documented as of this encounter
--- OUTSIDE RECORDS SUMMARY | 2024-05-29 04:28 | XMS_ITS | Encounter Summary ---
Author Organization [facility] Address [address] [place] [address] Care Team Providers Care Publication Editor Name Role Phone Tu Green MD Primary Care Provider [phone] Encounter Details Date Type Department Care Team (Latest Contact Info) Description 04/04/2024 12:12 PM CDT - 04/04/2024 11:59 PM CDT Hospital Encounter [facility] [address] [place] [address] Chivo Fierro MD [address] [facility] [address] [place] [address] Discharge Disposition: Home or Self Care Social History Tobacco Use Types Packs/Day Years Used Date Smoking Tobacco: Never Assessed Sex and Gender Information Value Date Recorded Sex Assigned at Not on file Gender Identity Not on file Sexual Orientation Not on file documented as of this encounter Medications at Time of Discharge Medication Sig Dispensed Refills Start Date End Date amphetamine-dextroamphet amine (Adderall) 30 MG tablet 01/09/2024 colesevelam (Welchol) 625 MG tablet Take 1 (one) tablet by mouth 2 times daily with morning and evening meal 10/30/2023 NA-K-MG sulfates (Suprep Bowel Prep Kit) 17.5-3.13-1.6 GM/177ML solution Please use the directions that have been provided by your physician's office. 1 kit 02/01/2024 nebivolol (Bystolic) 10 MG tablet Take 1 (one) tablet by mouth once daily 01/05/2024 pantoprazole EC (Protonix) 40 MG tablet Take 1 (one) tablet by mouth once daily 12/05/2023 tadalafil (Cialis) 5 MG tablet Take 1 (one) tablet by mouth once daily as needed 09/08/2023 testosterone cypionate (Depo-Testosterone) 200 MG/ML injection 12/05/2023 documented as of this encounter Progress Notes * Chivo Fierro MD - 04/04/2024 11:59 PM CDT Please call the patient: 1. Colonic tubular adenoma x1 and benign colon mucosa polyp x1 Rec: 1. Continue high fiber diet 2. Call back for GI symptoms. 3. Schedule colonoscopy in 5 years. 4. Ask the patient to inform the first degree relatives about this history of tubular adenomas ( precancerous polyps ), and that the first degree relatives (parents, brothers, sisters, and children) should have screening colonoscopies at 36 and then every 5 years until the age of 85, and they should not have blood or stool screening for colon cancer tests (such as Cologuard or FIT tests) but instead they should have colonoscopies. documented in this encounter Plan of Treatment Not on file documented as of this encounter Procedures Procedure Name Priority Date/Time Associated Diagnosis Comments PATHOLOGY TISSUE EXAM (STL) Routine 04/03/2024 2:54 PM CDT Family hx colonic polyps - brothers documented in this encounter Results * PATHOLOGY TISSUE EXAM (STL) (04/03/2024 2:54 PM CDT) Case Report Surgical Pathology Report ? Case: [id number] ? Authorizing Provider: ??Chivo Fierro MD ?Collected: ? 04/03/2024 02:54 PM ? Ordering Location: ? [facility] ?Received: ?04/04/2024 12:14 PM ? Pathologist: ? Guera Iyer MD ? Specimens: ?? A) - Polyp Ascending ? B) - Polyp Sigmoid ? 04/05/2024 9:20 AM [facility] Final Diagnosis Ascending colon, polypectomy: Tubular adenoma(s) x1 - Negative for high-grade dysplasia Sigmoid colon, polypectomy: Benign nonneoplastic colorectal mucosa consistent with mucosal fold No epithelial lesion/dysplasia 04/05/2024 9:20 AM [facility] Clinical History 3 mm ascending polyp, diminutive mid sigmoid polyp and moderate diverticulosis 04/05/2024 9:20 AM [facility] Gross Description 2 formalin filled specimen containers received. Specimen A labeled ? ascending polyp? consists of a 3 mm thornton polypoid tissue fragment, submitted in toto in A1. Specimen B labeled ? sigmoid polyp? consists of a 2 mm thornton polypoid tissue fragment, submitted in toto in B1. 04/05/2024 9:20 AM [facility] Pathologist Location at [facility] 04/05/2024 9:20 AM [facility] Disclaimer All histochemical and/or immunohistochemical results are interpreted with controls that demonstrate appropriate staining reactions before reporting results. Note on use of immunocytochemistry reagents: This test was developed and its performance characteristic determined by [facility], Department of Laboratory Medicine. It has [...] interpreted with caution. 04/05/2024 9:20 AM CDT [facility] Embedded Images 04/05/2024 9:20 AM CDT [facility] Pathology/Cytology POLYP OF SIGMOID COLON / Unknown 04/03/2024 2:54 PM CDT 04/04/2024 12:14 PM CDT Miscellaneous samples (specimen) POLYP OF SIGMOID COLON / Unknown 04/03/2024 2:54 PM CDT 04/04/2024 12:14 PM CDT Chivo Fierro MD LAB - PATHOLOGY/CYTO LOGY ORDERABLES Performing Organization Address City/State/[facility] Co de Phone Number [facility] [address] [place] [address] documented in this encounter Visit Diagnoses Diagnosis Family hx colonic polyps - brothers- Primary Family history of colonic polyps documented in this encounter Care Teams Publication Editor Relationship Specialty Start Date End Date Tu Green MD [address] [address] [place] [id number] PCP - General Internal Medicine 01/11/19 documented as of this encounter
--- OUTSIDE RECORDS SUMMARY | 2024-05-29 04:28 | XMS_ITS | Patient Health Summary ---
Author Organization [facility] Address [address] [place] [address] Care Team Providers Care Contact Lens Inspector Name Role Phone Tu Green MD Primary Care Provider [phone] Note from [facility],non-owned Affiliates and Associated Physician Practices is amultiple site organization consisting of ambulatory clinics and hospital sitesin [place], [place], [place] and [place]. This disclosure is being madepursuant to the Care Everywhere program and may not contain all information available regarding this patient. Last updated 18.[facility] Allergies No known active allergies Medications * Be aware that medications may not be up to date on this document. Alwaysverify current medications with the patient. * colesevelam (Welchol) 625 MG tablet(Started 10/30/2023) Take 1 (one) tablet by mouth 2 times daily with morning and evening meal * pantoprazole EC (Protonix) 40 MG tablet(Started 12/05/2023) Take 1 (one) tablet by mouth once daily * nebivolol (Bystolic) 10 MG tablet(Started 01/05/2024) Take 1 (one) tablet by mouth once daily * tadalafil (Cialis) 5 MG tablet(Started 09/08/2023) Take 1 (one) tablet by mouth once daily as needed * testosterone cypionate (Depo-Testosterone) 200 MG/ML injection(Started 12/05/2023) * amphetamine-dextroamphetamine (Adderall) 30 MG tablet(Started 01/09/2024) * NA-K-MG sulfates (Suprep Bowel Prep Kit) 17.5-3.13-1.6 GM/177ML solution (Started 02/01/2024) Please use the directions that have been provided by your physician's office. Active Problems Problem Noted Date Diagnosed Date Diverticulosis of colon 04/05/2024 History of adenomatous polyp of colon 04/05/2024 Family hx colonic polyps - brothers 04/03/2024 Immunizations * TDAP (7yrs+)(Given 01/11/2019) Social History Tobacco Use Types Packs/Day Years Used Date Smoking Tobacco: Never Assessed Sex and Gender Information Value Date Recorded Sex Assigned at Not on file Gender Identity Not on file Sexual Orientation Not on file Procedures * PATHOLOGY TISSUE EXAM (STL)(Performed 04/03/2024) Performed for Family hx colonic polyps - brothers * ENDOSCOPY, COLON, SCREENING(Performed 04/03/2024) Performed for Family hx colonic polyps Results * PATHOLOGY TISSUE EXAM (STL) (04/03/2024 2:54 PM CDT) Case Report Surgical Pathology Report ? Case: [id number] ? Authorizing Provider: ??Chivo Fierro MD ?Collected: ? 04/03/2024 02:54 PM ? Ordering Location: ? [facility] ?Received: ?04/04/2024 12:14 PM ? Pathologist: ? Guera Iyer MD ? Specimens: ?? A) - Polyp Ascending ? B) - Polyp Sigmoid ? 04/05/2024 9:20 AM [facility] Final Diagnosis Ascending colon, polypectomy: Tubular adenoma(s) x1 - Negative for high-grade dysplasia Sigmoid colon, polypectomy: Benign nonneoplastic colorectal mucosa consistent with mucosal fold No epithelial lesion/dysplasia 04/05/2024 9:20 AM [facility] Clinical History 3 mm ascending polyp, diminutive mid sigmoid polyp and moderate diverticulosis 04/05/2024 9:20 AM [facility] Gross Description 2 formalin filled specimen containers received. Specimen A labeled ? ascending polyp? consists of a 3 mm thornton polypoid tissue fragment, submitted in toto in A1. Specimen B labeled ? sigmoid polyp? consists of a 2 mm thornton polypoid tissue fragment, submitted in toto in B1. 04/05/2024 9:20 AM [facility] Pathologist Location at [facility] 04/05/2024 9:20 AM [facility] Disclaimer All histochemical and/or immunohistochemical results [...] be interpreted with caution. 04/05/2024 9:20 AM [facility] Embedded Images 04/05/2024 9:20 AM CDT [facility] Pathology/Cytology POLYP OF SIGMOID COLON / Unknown 04/03/2024 2:54 PM CDT 04/04/2024 12:14 PM CDT Miscellaneous samples (specimen) POLYP OF SIGMOID COLON / Unknown 04/03/2024 2:54 PM CDT 04/04/2024 12:14 PM CDT Chivo Fierro MD LAB - PATHOLOGY/CYTO LOGY ORDERABLES [facility] [address] [place] [address] * Endoscopy, Colon, Screening (04/03/2024) Chivo Fierro MD GI PROCEDURE ORDERAB [facility] Care Teams Contact Lens Inspector Relationship Specialty Start Date End Date Tu Green MD [address] [facility] [address] [place] [id number] PCP - General Internal Medicine 01/11/19
--- OUTSIDE RECORDS SUMMARY | 2024-05-29 04:28 | XMS_ITS | Clinical Summary ---
Author Organization [facility] Address [address] [place] [address] Care Team Providers Care Application Support Analyst Name Role Phone Tu Green MD Primary Care Provider [phone] Source Comments [facility],non-owned Affiliates and Associated Physician Practices is amultiple site organization consisting of ambulatory clinics and hospital sitesin [place], [place], [place] and [place]. This disclosure is being madepursuant to the Care Everywhere program and may not contain all information available regarding this patient. Last updated 18.[facility] Allergies No known active allergies Medications * [...] polyps - brothers 04/03/2024 Overview (04/03/2024): Brothers Encounters Date Type Department Care Team Description 04/04/2024 12:12 PM CDT - 04/04/2024 11:59 PM CDT Hospital Encounter [facility] [address] [place] [address] Chivo Fierro MD Discharge Disposition: Home or Self Care 04/04/2024 Travel from Last 3 Months Immunizations Name Administration Dates Next Due TDAP (7yrs+) 01/11/2019 Family History Medical History Relation Name Comments Colon polyps Brother 1 Colon polyps Brother 2 Cancer - Colon Neg Hx Malignant Hyperthermia Neg Hx Relation Name Status Comments Brother 1 Brother 2 Alive Social History Tobacco Use Types Packs/Day Years Used Date Smoking Tobacco: Never Assessed Sex and Gender Information Value Date Recorded Sex Assigned at Not on file Gender Identity Not on file Sexual Orientation Not on file Plan of Treatment Health Maintenance Due Date Last Done Comments COLOGUARD (AGES 45-75) - COL ON CA SCREENING 1977 CT COLONOGRAPHY - COLON CA SCREENING 1977 FIT - COLON CA SCREENING 1977 FLEX SIG - COLON CA SCREENING 1977 LIPID TESTING 1977 HIV SCREENING 1992 HEPATITIS C SCREENING 04/19/1995 HEPATITIS B VACCINE (1 of 3 - 19+ 3-dose series) 1996 DEPRESSION SCREENING 06/13/2023 COVID-19 VACCINE (1 - 2023-2 5 season) 2024 INFLUENZA VACCINE (#1) 2024 ZOSTER VACCINE (1 of 2) 2027 DTAP/TDAP/TD VACCINES (2 - T d or Tdap) 01/11/2029 01/11/2019 COLONOSCOPY - COLON CA SCREENING 04/03/2029 04/03/20 Colorectal Cancer Screening 04/03/2029 COLON MONITORING 04/03/2034 04/03/2024 HIB VACCINE Aged Out No longer eligi ble based on patient's age to complete this topic HPV VACCINE Aged Out No longer eligi ble based on patient's age to complete this topic MENINGOCOCCAL VACCINE Aged Out No sherlyn chelsy eligible based on patient's age to complete this topic PNEUMOCOCCAL VACCINE Aged Out No long er eligible based on patient's age to complete this topic Procedures Procedure Name Priority Date/Time Associated Diagnosis Comments PATHOLOGY TISSUE EXAM (STL) Routine 04/03/2024 2:54 PM CDT Family hx colonic polyps - brothers ENDOSCOPY, COLON, SCREENING Routine 04/03/2024 Family hx colonic polyps from Last 3 Months Results * PATHOLOGY TISSUE EXAM (STL) (04/03/2024 2:54 PM CDT) Case Report Surgical Pathology Report ? Case: [id number] ? Authorizing Provider: ??Chivo Fierro MD ?Collected: ? 04/03/2024 02:54 PM ? Ordering Location: ? [facility] ?Received: ?04/04/2024 12:14 PM ? Pathologist: ? Guera Iyer MD ? Specimens: ?? A) - Polyp Ascending ? B) - Polyp Sigmoid ? 04/05/2024 9:20 AM [facility] Final Diagnosis Ascending colon, polypectomy: Tubular adenoma(s) x1 - Negative for high-grade dysplasia Sigmoid colon, polypectomy: Benign nonneoplastic colorectal mucosa consistent with mucosal fold No epithelial lesion/dysplasia 04/05/2024 9:20 AM [facility] Clinical History 3 mm ascending polyp, diminutive mid sigmoid polyp and moderate diverticulosis 04/05/2024 9:20 AM [facility] Gross Description 2 formalin filled specimen containers received. Specimen A labeled ? ascending polyp? consists of a 3 mm thornton polypoid tissue fragment, submitted in toto in A1. Specimen B labeled ? sigmoid polyp? consists of a 2 mm thornton polypoid tissue fragment, submitted in toto in B1. 04/05/2024 9:20 AM [facility] Pathologist Location at [facility] 04/05/2024 9:20 AM [facility] Disclaimer All histochemical and/or immunohistochemical results are interpreted with controls that demonstrate appropriate staining reactions before reporting results. Note on use of immunocytochemistry reagents: This test was developed and its performance characteristic determined by [facility], Department of Laboratory Medicine. It has not [...] be interpreted with caution. 04/05/2024 9:20 AM [facility] Embedded Images 04/05/2024 9:20 AM CDT [facility] Pathology/Cytology POLYP OF SIGMOID COLON / Unknown 04/03/2024 2:54 PM CDT 04/04/2024 12:14 PM CDT Miscellaneous samples (specimen) POLYP OF SIGMOID COLON / Unknown 04/03/2024 2:54 PM CDT 04/04/2024 12:14 PM CDT Chivo Fierro MD LAB - PATHOLOGY/CYTO LOGY ORDERABLES [facility] [address] [place] [address] * Endoscopy, Colon, Screening (04/03/2024) Chivo Fierro MD GI PROCEDURE ORDERAB LES from Last 3 Months Care Teams Application Support Analyst Relationship Specialty Start Date End Date Tu Green MD [address] [facility] [address] [place] [address] PCP - General Internal Medicine 01/11/19
== END 2024-05-25 16:50 | disposition home or self-care (01) ==
PROVIDERS: Emergency Provider Nurse Practitioner Family
DX: J06.9 Acute upper respiratory infection, unspecified (principal); Z20.822 Contact with and (suspected) exposure to COVID-19; F17.210 Nicotine dependence, cigarettes, uncomplicated; I10 Essential (primary) hypertension; K21.9 Gastro-esophageal reflux disease without esophagitis
CPT/HCPCS: 87426; 87804; 99213; G0463

== ENCOUNTER 2025-04-08 09:35 | Emergency (ER) | payer BC, SELFPAY ==
[2025-04-08 09:38] VITALS: BP 126/78; PULSE 65; RESP 16; TEMP 36.2; O2SAT 100
[2025-04-08 10:04] LABS: EDCOVIDSCREEN Negative (Negative); EDINFLUASCREEN Negative (Negative); EDINFLUBSCREEN Negative (Negative); EDSTREPNEGPOS1 Negative (Negative)
--- NOTE | 2025-04-08 10:10 | ED_ITS ---
HPI - General Adult General Chief complaint: Upper Respiratory Infection Stated complaint: FLU Like Source: patient Mode of arrival: ambulatory Limitations: no limitations History of Present Illness HPI narrative: Pt presents for evaluation of sick symptoms. Symptom onset four to five days ago. He reports sinus congestion, thick green nasal drainage, sore throat and headache. No fever, chills, nausea, vomiting, diarrhea. No recent sick contacts to his knowledge. He tried taking Mucinex for his symptoms. He does not smoke. Related Data Home Medications ?Medication ?Instructions ?Recorded ?Confirmed ?Last Taken ?Type pantoprazole 40 mg tablet,delayed 40 mg PO DAILY 08/1904/08/25 Unknown History release testosterone cypionate 200 mg/mL 6 mg IM DIRECTED 0 08/19/21 04/08/25 Unknown History intramuscular oil nebivolol 10 mg tablet mg 05/25/24 Unknown History colesevelam 625 mg tablet mg 04/08/25 Unknown History Allergies Allergy/AdvReac Type Severity Reaction Status Date / Time No Known Allergies Allergy Verified 04/08/25 09:38 Review of Systems Review of Systems: CONSTITUTIONAL: Denies fever, chills, or sweats. EYES: Denies visual changes, redness, or discharge. ENT: reports sinus congestion, thick green drainage from the nares and sore throat CARDIOVASCULAR: Denies chest pain, palpitations, or edema. RESPIRATORY: Denies cough or dyspnea. GASTROINTESTINAL: Denies abdominal pain, nausea, vomiting, or diarrhea. GENITOURINARY: Denies dysuria or hematuria. SKIN: Denies rash or itching. MUSCULOSKELETAL: Denies back pain, joint pain, or myalgia. NEUROLOGIC: Reports headache. Denies numbness, dizziness, or weakness. PSYCHIATRIC: Denies anxiety or depression. [facility] Past Medical History Medical History GERD (gastroesophageal reflux disease) HTN (hypertension) Surgical History Surgical History History of cholecystectomy Family History Family History Mother Family history non-contributory Social History Social History Alcohol intake: current Substance use: never Gender identity (if verbalized by the patient): Male Spiritual care concerns: No Exam Narrative: GENERAL: Well-appearing, well-nourished, and in no acute distress. HEAD: Normocephalic, atraumatic. EYES: PERRLA and EOMI. ENT: Nares clear, no rhinorrhea or epistaxis. Mucous membranes moist. Oropharynx without tonsillar hypertrophy exudate or other lesions. Bilateral TMs pearly chaudhry nonbulging NECK: Supple. No adenopathy or masses. No carotid bruits or JVD CHEST: Clear to auscultation. No respiratory distress. No wheezes rales or rhonchi HEART: Regular rate and rhythm. No murmur heard. Normal peripheral pulses. ABDOMEN: Soft, nontender, nondistended, normal active bowel sounds. EXTREMITIES: Normal range of motion. No edema. SKIN: Warm, dry, no rash. NEURO: No focal deficits. Alert and oriented x3. PSYCH: Normal mood and affect. Course Course Emergency Course: this is a 49-year-old male who presented for evaluation of sick symptoms. COVID, flu and strep were negative. exam consistent with bacterial sinusitis based upon mucopurulent nature of his discharge. Will discharge with Augmentin. He indicates he had been wheezing last night so will also provide a prescription for prednisone. Increase hydration. [id number] agents for symptom management. Follow up with primary provider. Go to the ER for worsening symptoms. Patient in agreement with plan of care. Level of Care: Express Care Visit Vital Signs Vital signs: Vital Signs Temperature 36.2 C L 04/08/25 09:38 Pulse Rate 65 04/08/25 09:38 Respiratory Rate 16 04/08/25 09:38 Blood Pressure 126/78 04/08/25 09:38 Pulse Oximetry 100 04/08/25 09:38 Oxygen Delivery Room Air 04/08/25 09:38 Temperature 36.2 C L 04/08/25 09:38 Pulse Rate 65 04/08/25 09:38 Respiratory Rate 16 04/08/25 09:38 Blood Pressure 126/78 04/08/25 09:38 Pulse Oximetry 100 04/08/25 09:38 Oxygen Delivery Room Air 04/08/25 09:38 Medical Decision Making Vital Signs Vital Signs: Vital Signs Temperature 36.2 C L 04/08/25 09:38 Pulse Rate 65 04/08/25 09:38 Respiratory Rate 16 04/08/25 09:38 Blood Pressure 126/78 04/08/25 09:38 Pulse Oximetry 100 04/08/25 09:38 Oxygen Delivery Room Air 04/08/25 09:38 Temperature 36.2 C L 04/08/25 09:38 Pulse Rate 65 04/08/25 09:38 Respiratory Rate 16 04/08/25 09:38 Blood Pressure 126/78 04/08/25 09:38 Pulse Oximetry 100 04/08/25 09:38 Oxygen Delivery Room Air 04/08/25 09:38 Lab Data Labs: Lab Results 04/08/25 Range/Units 09:40 POC Influenza A Ag Negative (Negative) POC Influenza B Ag Negative (Negative) POC SARS CoV-2 Ag Negative (Negative) POC Grp A Strep Screen Negative (Negative) Discharge Plan Discharge Clinical Impression: Sinusitis Patient Disposition: Home Condition: Stable Instructions: Antibiotic Form, Sinusitis (ED) Patient Language: Zambian Prescriptions: New amoxicillin-pot clavulanate 875-125 mg tablet 1 tablet PO Q12H Qty: 20 0RF prednisone 50 mg tablet 50 mg PO DAILY Qty: 5 0RF No Action pantoprazole 40 mg tablet,delayed release (DR/EC) 40 mg PO DAILY testosterone cypionate 200 mg/mL oil 6 mg IM DIRECTED nebivolol 10 mg tablet colesevelam 625 mg tablet Follow-up/Referrals: Julio Dewitt MD [Physician, Family Practice] Stand Alone Forms: Work/School Release IP Time of Disposition: 10:
--- OUTSIDE RECORDS SUMMARY | 2025-04-08 10:28 | XMS_ITS | Clinical Summary ---
Author Organization [facility] Address [address] [place] [address] Care Team Providers Care Mechanical Fitter Name Role Phone Tu Green MD Primary Care Provider [phone] Allergies Active Allergy Reactions Criticality Noted Date Comments Minocycline Angioedema High 09/20/2011 Medications dextroamphetamine -amphetamine (ADDERALL) 30 mg tablet 11/25/2017 Active pantoprazole (PROTONIX) 40 mg Tablet, Delayed Release (E.C.) TAKE 1 TABLET BY MOUTH EVERY DAY 30 Tablet 3 12/08/2020 Active nebivoloL (Bystolic) 20 mg TabletIndications :Benign hypertension TAKE 1 TABLET(20 MG) BY MOUTH DAILY 30 Tablet 5 03/19/2021 Active testosterone cypionate (DEPO-TESTOSTERON E) 200 mg/mL Oil 02/08/2022 Ac tive colesevelam (WELCHOL) 625 mg TabletIndications :Chronic diarrhea TAKE 1 TABLET(625 MG) BY MOUTH TWICE DAILY WITH MEALS 200 Tablet 2 07/30/2024 Active valACYclovir (Valtrex) 1 gram tablet Take 1 Tablet (1 Gram) by mouth 2 times daily. 4 Tablet 3 12/24/2024 Active Active Problems Problem Noted Date Diagnosed Date Benign hypertension 03/10/2018 Hypertensive heart disease without heart failure 12/29/2017 ADHD 12/29/2017 Elevated LFTs 12/20/2017 Calculus of gallbladder with acute cholecystitis without obstruction 12/19/2017 Gallstones 12/17/2017 Bilateral upper abdominal pain 12/13/2017 Scrotal abscess 02/10/2015 Anxiety state, unspecified 09/22/2005 Obsessive-compulsive disorder 09/22/2005 Personal history of tobacco use, presenting hazards to health 07/15/2004 Resolved Problems Problem Noted Date Diagnosed Date Resolved Date Hypertrophic cardiomyopathy 12/17/2017 12/29/2017 Accelerated hypertension 12/13/2017 Encounters Date Type Department Care Team Description 01/29/2025 External Device Data STL ABSTRACTION Provider, Abstract from Last 3 Months Immunizations Immunization Administration Dates Next Due (ADACEL/BOOSTRIX)(10 YR UP) TDAP VACCINE, 0.5ML, IM 01/11/2019,10/03/2018 Family History Medical History Relation Name Comments Cancer Brother Hypertension Mother Relation Name Status Comments Brother Other Mother Other Social History Tobacco Use Types Packs/Day Years Used Date Smoking Tobacco: Some Days Cigarettes 1 25 Smokeless Tobacco: Current Chew Tobacco Cessation:Ready to Q uit: Not Asked; Counseling Given: Not Answered Alcohol Use Standard Drinks/Week Comments Yes 0 (1 standard drink = 0.6 oz pur e alcohol) 1-3 drinks a month Sex and Gender Information Value Date Recorded Sex Assigned at Not on file Legal Sex Male 2:46 AM DIGITAL DATA ANALYST Gender Identity Not on file Sexual Orientation Not on file Occupation Industry Job Start Date Job End Date Not on file Not on file Not on file Not on file Last Filed Vital Signs Vital Sign Reading Time Taken Comments Blood Pressure 122/76 03/19/2024 9:51 AM CDT Pulse 62 03/19/2024 9:51 AM CDT Temperature 36.7 C (98.1 F) 03/19/2024 9:51 AM CDT Respiratory Rate 16 12/20/2017 8:13 PM CDT Oxygen Saturation 98% 03/19/2024 9:51 AM CDT Inhaled Oxygen Concentration - - Weight 85.7 kg (189 lb) 03/19/2024 9:51 AM CDT Height 165.1 cm (5' 5) 03/19/2024 9:51 AM CDT Body Mass Index 31.45 03/19/2024 9:51 AM CDT Plan of Treatment Health Maintenance Due Date Last Done Comments Pre-Diabetes and Diabetes Screening 1977 HEPATITIS B VACCINES (1 of 3 - 19+ 3-dose series) 1996 COLORECTAL SCREENING 2022 FIT/FOBT Q 1 year 2022 Flex Sig/CT Colonography Q 5 years 2022 Preventative Visit- Commercial 06/13/2024 1 , 03/08/2023, 10/03/2018, Additional history exists INFLUENZA VACCINE (#1) 2025 Colorectal Cancer Screening 04/05/2026 FIT-DNA Q 3 years 04/05/2026 04/05/2023 DTAP/TDAP/TD VACCINES (4 - T d or Tdap) 12/15/2034 12/15/2024, 01/11/2019, 10/03/2018 Procedures Procedure Name Priority Date/Time Associated Diagnosis Comments COLON CANCER SCREEN, STOOL DNA Routine 04/05/2023 10:50 PM CDT Screening for colon cancer from Last 3 Months or Most Recently Relevant to Health Maintenance Results * COLON CANCER SCREEN, STOOL DNA (04/05/2023 10:50 PM CDT) COLOGUARD RESULT Negative Negative [facility] Comment: NEGATIVE TEST RESULT. A negative Cologuard result indicates a low likelihood that a colorectal cancer (CRC) or advanced adenoma (adenomatous polyps with more advanced pre-malignant features) is present. The chance that a person with a negative Cologuard test has a colorectal cancer is less than 1 in 1500 (negative predictive value >99.9%) or has an advanced adenoma is less than 5.3% (negative predictive value 94.7%). These data are based on a prospective cross-sectional study of 10,000 individuals at average risk for colorectal cancer who were screened with both Cologuard and colonoscopy. (Mrya Berkowitz et al, N Engl J Med 2014;370(14):4008-4722) The normal value (reference range) for this assay is negative. COLOGUARD RE-SCREENING RECOMMENDATION: Periodic colorectal cancer screening is an important part of preventive healthcare for asymptomatic individuals at average risk for colorectal cancer. Following a negative Cologuard result, the [place] [employer] Society and U.S. Multi-Society Task Force screening guidelines recommend a Cologuard re-screening interval of 3 years. References: [place] [employer] Guideline for Colorectal Cancer Screening: https://www.cancer.org/cancer/hhigb-uvqnyh-azqzyu/bebwcwuhh-mycpfcajp-xxyrkgc/ac s-rec ommendations.html.; Mary Umanaand CR, Jeferson HealyK, Colorectal Cancer Screening: Recommendations for Physicians and Patients from the U.S. Multi-Society Task Force on Colorectal Cancer Screening , Am J Gastroenterology 2017; 112:0301-1610. TEST DESCRIPTION: Composite algorithmic analysis of stool DNA-biomarkers with hemoglobin immunoassay. Quantitative values of individual biomarkers are not reportable and are not associated with individual biomarker result reference ranges. Cologuard is intended for colorectal cancer screening of adults of either sex, 45 years or older, who are at average-risk for colorectal cancer (CRC). Cologuard has been approved for use by the U.S. FDA. The performance of Cologuard was established in a cross sectional study of average-risk adults aged 50-84. Cologuard performance in patients ages 45 to 49 years was estimated by sub-group analysis of near-age groups. Colonoscopies performed for a positive result may find as the most clinically significant lesion: colorectal cancer [4.0%], advanced adenoma (including sessile serrated polyps greater than or equal to 1cm diameter) [20%] or non- advanced adenoma [31%]; or no colorectal neoplasia [45%]. These estimates are derived from a prospective cross-sectional screening study of 10,000 individuals at average risk for colorectal cancer who were screened with both Cologuard and colonoscopy. (Myra Medina al, N Engl J Med 2014;370(14):7275-0145.) Cologuard may produce a false negative or false positive result (no colorectal cancer or precancerous polyp present at colonoscopy follow up). A negative Cologuard test result does not guarantee the absence of CRC or advanced adenoma (pre-cancer). The current Cologuard screening interval is every 3 years. ([place] [employer] Society and U.S. Multi-Society Task Force). Cologuard performance data in a 10,000 patient pivotal study using colonoscopy as the reference method can be accessed at the following location: [email or web address]/results. Additional description of the Cologuard test process, warnings and precautions can be found at [email or web address].[email or web address]. Stool STOOL SPECIMEN / Unknown 04/05/2023 10:50 PM CDT 04/07/2023 1:11 AM CDT Tu Green MD BODY FLUIDS AND STOOLS Final Result [employer] RAMON # [id number] [address] , [address] [place] [address] from Last 3 Months or Most Recently Relevant to Health Maintenance Insurance [facility] BLUE ACCESS CHOICE RX [employer] [facility] Advance Directives For more information, please contact: [phone] * Full Code (Latest Code Status on File) Date Activated Date Inactivated Comments 12/20/2017 2:19 PM 12/20/2017 6:08 PM Care Teams Mechanical Fitter Relationship Specialty Start Date End Date Tu Green MD PCP - General Internal Medicine 03/12/10
--- OUTSIDE RECORDS SUMMARY | 2025-04-08 10:28 | XMS_ITS | Encounter Summary ---
Author Organization [facility] Address [address] [place] [address] Care Team Providers Care Chef Broiler Or Fry Name Role Phone Tu Green MD Primary Care Provider [phone] Encounter Details Date Type Department Care Team (Late st Contact Info) Description 07/15/2004 Outpatient Historical [facility] Internal Medicine Medical [facility] [id number] [address] Taurus Herrmann MD NO ADDRESS ON FILE Social History Tobacco Use Types Packs/Day Years Used Date Smoking Tobacco: Never Assessed Sex and Gender Information Value Date Recorded Sex Assigned at Not on file Legal Sex Male 2:46 AM CLIPPING MARKER Gender Identity Not on file Sexual Orientation Not on file documented as of this encounter Plan of Treatment Not on file documented as of this encounter Visit Diagnoses Not on filedocumented in this encounter Additional Health Concerns Infection Onset Date Last Indicated Resolved Time COVID-19 06/15/2023 06/15/2023 07/05/2023 1:16 AM CLIPPING MARKER documented as of this encounter Care Teams Chef Broiler Or Fry Relationship Specialty Start Date End Date Tu Green MD PCP - General Internal Medicine 03/12/10 documented as of this encounter
--- OUTSIDE RECORDS SUMMARY | 2025-04-08 10:28 | XMS_ITS | Encounter Summary ---
Author Organization [facility] Address [address] [place] [address] Care Team Providers Care Supplier Diversity Director Name Role Phone Tu Green MD Primary Care Provider [phone] Reason for Visit * Reason Comments Medication Refill Encounter Details Date Type Department Care Team (Late st Contact Info) Description 08/31/2018 Refill [facility] [address] [place] [phone] Tu Green MD [address] [place] [address] [address] [place] [phone] Social History Tobacco Use Types Packs/Day Years Used Date Smoking Tobacco: Former Cigarettes 1 25 Smokeless Tobacco: Current Alcohol Use Standard Drinks/Week Comments Yes 0 (1 standard drink = 0.6 oz pur e alcohol) 0-1/3 MONTHS Sex and Gender Information Value Date Recorded Sex Assigned at Not on file Legal Sex Male 2:46 AM INFORMATION TECHNOLOGY SECURITY ANALYST Gender Identity Not on file Sexual Orientation Not on file Occupation Industry Job Start Date Job End Date Not on file Not on file Not on file Not on file documented as of this encounter Miscellaneous Notes * Telephone Encounter - Barbara Mancini - 08/31/2018 12:52 PM CDT LAST OV - 03/08/2018 LAST REFILL- 03/27/2018 documented in this encounter Plan of Treatment Not on file documented as of this encounter Visit Diagnoses Not on filedocumented in this encounter Additional Health Concerns Infection Onset Date Last Indicated Resolved Time COVID-19 06/15/2023 06/15/2023 07/05/2023 1:16 AM INFORMATION TECHNOLOGY SECURITY ANALYST documented as of this encounter Care Teams Supplier Diversity Director Relationship Specialty Start Date End Date Tu Green MD PCP - General Internal Medicine 03/12/10 documented as of this encounter
--- OUTSIDE RECORDS SUMMARY | 2025-04-08 10:28 | XMS_ITS | Encounter Summary ---
Author Organization [facility] Address [address] [place] [address] Care Team Providers Care Adventure Challenge Instructor Name Role Phone Tu Green MD Primary Care Provider [phone] Reason for Visit * Reason Comments Medication Refill Encounter Details Date Type Department Care Team (Late st Contact Info) Description 05/19/2018 Refill [facility] [address] [place] [phone] Tu Green MD [address] [place] [address] [address] [place] [phone] Social History Tobacco Use Types Packs/Day Years Used Date Smoking Tobacco: Former Cigarettes 1 25 Smokeless Tobacco: Current Alcohol Use Standard Drinks/Week Comments Yes 0 (1 standard drink = 0.6 oz pur e alcohol) 0-1/3 MONTHS Sex and Gender Information Value Date Recorded Sex Assigned at Not on file Legal Sex Male 2:46 AM PAINT CREW SUPERVISOR Gender Identity Not on file Sexual Orientation Not on file Occupation Industry Job Start Date Job End Date Not on file Not on file Not on file Not on file documented as of this encounter Miscellaneous Notes * Telephone Encounter - Barbara Mancini - 05/22/2018 7:04 AM CST LAST OV - 03/08/2018 LAST REFILL- 01/23/2018 T CREW SUPERVISOR documented in this encounter Plan of Treatment Not on file documented as of this encounter Visit Diagnoses Not on filedocumented in this encounter Additional Health Concerns Infection Onset Date Last Indicated Resolved Time COVID-19 06/15/2023 06/15/2023 07/05/2023 1:16 AM PAINT CREW SUPERVISOR documented as of this encounter Care Teams Adventure Challenge Instructor Relationship Specialty Start Date End Date Tu Green MD PCP - General Internal Medicine 03/12/10 documented as of this encounter
--- OUTSIDE RECORDS SUMMARY | 2025-04-08 10:28 | XMS_ITS | Encounter Summary ---
Author Organization [facility] Address [address] [place] [address] Care Team Providers Care Drawing Checker Name Role Phone Tu Green MD Primary Care Provider [phone] Encounter Details Date Type Department Care Team (Latest Contact Info) Description 02/03/2007 Outpatient Historical [facility] Internal Medicine Medical [facility] [id number] [address] Taurus Herrmann MD NO ADDRESS ON FILE Other Malaise and Fatigue (Primary Dx) Social History Tobacco Use Types Packs/Day Years Used Date Smoking Tobacco: Never Assessed Sex and Gender Information Value Date Recorded Sex Assigned at Not on file Legal Sex Male 2:46 AM KILN BURNER Gender Identity Not on file Sexual Orientation Not on file documented as of this encounter Plan of Treatment Not on file documented as of this encounter Procedures Procedure Name Priority Date/Time Associated Diagnosis Comments CBC WITH DIFFERENTIAL Routine 02/03/2007 3:09 PM CDT CBC WITH DIFFERENTIAL Routine 02/03/2007 3:09 PM CDT TSH Routine 02/03/2007 3:09 PM CDT COMPREHENSIVE METABOLIC PANEL Routine 02/03/2007 3:09 PM CDT documented in this encounter Results * CBC WITH DIFFERENTIAL (02/03/2007 3:09 PM CDT) NEUTROPHILS 66 45 - 70 % INTERFAC E SYSTEM LYMPHOCYTES 24 16 - 45 % INTERFAC E SYSTEM MONOCYTES 5 3 - 13 % INTERFACE SYSTEM EOSINOPHILS 4 0 - 7 % INTERFAC E SYSTEM BASOPHILS 0 0 - 2 % INTERFACE SYSTEM NEUTROPHIL ABSOLUTE 6.23 1.90 - 7.00 K/uL INTERFACE SYSTEM LYMPHOCYTE ABSOLUTE 2.30 0.70 - 4.50 K/uL INTERFACE SYSTEM MONOCYTE ABSOLUTE 0.51 0.10 - 1.30 K/uL INTERFACE SYSTEM EOSINOPHIL ABSOLUTE 0.42 0.00 - 0.70 K/uL INTERFACE SYSTEM BASOPHILS ABSOLUTE 0.04 0.00 - 0.20 K/uL INTERFACE SYSTEM 02/03/2007 3:09 PM CDT us Taurus Herrmann MD HEMATOLOGY ORDERABLES Edite d Performing Organization Address City/[facility] Phone Number INTERFACE SYSTEM Refer to clinic/hospital department * (ABNORMAL) CBC WITH DIFFERENTIAL (02/03/2007 3:09 PM CDT) WBC 9.5 4.0 - 9.8 K/uL INTERFACE SYSTEM RBC 5.18 4.50 - 5.40 M/uL INTERFACE SYSTEM HEMOGLOBIN 15.9 13.6 - 16.5 g/dL INTERFACE SYSTEM HEMATOCRIT 44.4 40.0 - 48.0 % INTERFACE SYSTEM MCV 85.7 82.0 - 99.0 fL INTERFACE SYSTEM MCH 30.7 27.2 - 32.6 pg INTERFACE SYSTEM MCHC 35.8(H) 31.5 - 35.5 % INTERFACE SYSTEM RDW 12.4 11.5 - 14.5 % INTERFACE SYSTEM RDW-STDEV 38.5 37.1 - 48.7 fL INTERFACE SYSTEM PLATELETS 244 140 - 350 K/uL INTERFACE SYSTEM MPV 11.8 9.3 - 12.4 fL INTERFACE SYSTEM 02/03/2007 3:09 PM CDT us Taurus Herrmann MD HEMATOLOGY ORDERABLES Edite d Performing Organization Address City/[facility] de Phone Number INTERFACE SYSTEM Refer to clinic/hospital department * TSH (02/03/2007 3:09 PM CDT) TSH 0.56 0.27 - 4.20 uU/mL INTERFACE SYSTEM 02/03/2007 3:09 PM CDT Taurus Herrmann MD CHEMISTRY ORDERABLES Edited INTERFACE SYSTEM Refer to clinic/hospital department * COMPREHENSIVE METABOLIC PANEL (02/03/2007 3:09 PM CDT) GLUCOSE 90 65 - 99 mg/dL INTERFACE SYSTEM CREATININE 1.06 0.67 - 1.17 mg/dL INTERFACE SYSTEM CALCIUM 9.2 8.4 - 10.2 mg/dL INTERFACE SYSTEM ALKALINE PHOSPHATASE 51 40 - 129 U/L INTERFACE SYSTEM AST 22 12 - 38 U/L INTERFACE SYSTEM ALT 19 0 - 41 U/L INTERFACE SYSTEM TOTAL PROTEIN 7.5 6.3 - 8.6 g/dL INTERFACE SYSTEM ALBUMIN 4.6 3.4 - 4.8 g/dL INTERFACE SYSTEM BILIRUBIN TOTAL 0.2 0.2 - 1.0 mg/dL INTERFACE SYSTEM BUN 16 6 - 20 mg/dL INTERFACE SYSTEM SODIUM 138 135 - 145 mmol/L INTERFACE SYSTEM POTASSIUM 4.1 3.5 - 4.9 mmol/L INTERFACE SYSTEM CHLORIDE 101 96 - 108 mmol/L INTERFACE SYSTEM CO2 26 22 - 30 mmol/L INTERFACE SYSTEM GFR, >60 >=60 mL/min/1.7 sq meter INTERFACE SYSTEM GFR >60 >=60 mL/min/1.7 sq meter INTERFACE SYSTEM Comment: Estimated GFR rate interpretative information for both Americans and non- Americans is available on the [facility] Intranet at: [email or web address] Select: Lab Policies and Procedures Select: Reference Ranges - GFR 02/03/2007 3:09 PM CDT Taurus Herrmann MD CHEMISTRY ORDERABLES Edited INTERFACE SYSTEM Refer to clinic/hospital department documented in this encounter Visit Diagnoses Diagnosis Other malaise and fatigue- Primary documented in this encounter Additional Health Concerns Infection Onset Date Last Indicated Resolved Time COVID-19 06/15/2023 06/15/2023 07/05/2023 1:16 AM KILN BURNER documented as of this encounter Care Teams Drawing Checker Relationship Specialty Start Date End Date Tu Green MD PCP - General Internal Medicine 03/12/10 documented as of this encounter
--- OUTSIDE RECORDS SUMMARY | 2025-04-08 10:28 | XMS_ITS | Encounter Summary ---
Author Organization [facility] Address [address] [place] [address] Care Team Providers Care Security Messenger Name Role Phone Tu Green MD Primary Care Provider [phone] Encounter Details Date Type Department Care Team (Late st Contact Info) Description 09/22/2005 Outpatient Historical [facility] Internal [facility] [address] [address] Taurus Herrmann MD NO ADDRESS ON FILE Social History Tobacco Use Types Packs/Day Years Used Date Smoking Tobacco: Never Assessed Sex and Gender Information Value Date Recorded Sex Assigned at Not on file Legal Sex Male 2:46 AM DAILY SALES AUDIT CLERK Gender Identity Not on file Sexual Orientation Not on file documented as of this encounter Plan of Treatment Not on file documented as of this encounter Visit Diagnoses Not on filedocumented in this encounter Additional Health Concerns Infection Onset Date Last Indicated Resolved Time COVID-19 06/15/2023 06/15/2023 07/05/2023 1:16 AM DAILY SALES AUDIT CLERK documented as of this encounter Care Teams Security Messenger Relationship Specialty Start Date End Date Tu Green MD PCP - General Internal Medicine 03/12/10 documented as of this encounter
--- OUTSIDE RECORDS SUMMARY | 2025-04-08 10:28 | XMS_ITS | Encounter Summary ---
Author Organization [facility] Address [address] [place] [address] Care Team Providers Care Geophysical Engineer Name Role Phone Tu Green MD Primary Care Provider [phone] Encounter Details Date Type Department Care Team (Late st Contact Info) Description 02/03/2007 Outpatient Historical [facility] Internal Medicine Medical [facility] [address] [address] Taurus Herrmann MD NO ADDRESS ON FILE Social History Tobacco Use Types Packs/Day Years Used Date Smoking Tobacco: Never Assessed Sex and Gender Information Value Date Recorded Sex Assigned at Not on file Legal Sex Male 2:46 AM SAMPLER AND TEST PREPARER Gender Identity Not on file Sexual Orientation Not on file documented as of this encounter Plan of Treatment Not on file documented as of this encounter Visit Diagnoses Not on filedocumented in this encounter Additional Health Concerns Infection Onset Date Last Indicated Resolved Time COVID-19 06/15/2023 06/15/2023 07/05/2023 1:16 AM SAMPLER AND TEST PREPARER documented as of this encounter Care Teams Geophysical Engineer Relationship Specialty Start Date End Date Tu Green MD PCP - General Internal Medicine 03/12/10 documented as of this encounter
--- OUTSIDE RECORDS SUMMARY | 2025-04-08 10:28 | XMS_ITS | Encounter Summary ---
Author Organization [facility] Address [address] [place] [address] Care Team Providers Care Automotive Glass Technician Name Role Phone Tu Green MD Primary Care Provider [phone] Encounter Details Date Type Department Care Team (Latest Contact Info) Description 09/22/2005 Outpatient Historical [facility] Herrmann, Taurus Healy MD NO ADDRESS ON FILE Anxiety State, Unspecified (Primary Dx) Social History Tobacco Use Types Packs/Day Years Used Date Smoking Tobacco: Never Assessed Sex and Gender Information Value Date Recorded Sex Assigned at Not on file Legal Sex Male 2:46 AM SYNTHETIC DEPARTMENT SUPERVISOR Gender Identity Not on file Sexual Orientation Not on file documented as of this encounter Plan of Treatment Not on file documented as of this encounter Procedures Procedure Name Priority Date/Time Associated Diagnosis Comments TSH Routine 09/22/2005 4:40 PM CDT documented in this encounter Results * TSH (09/22/2005 4:40 PM CDT) TSH 1.38 0.27 - 4.20 uU/mL INTERFACE SYSTEM 09/22/2005 4:40 PM CDT us Taurus Herrmann MD CHEMISTRY ORDERABLES Final Result INTERFACE SYSTEM Refer to clinic/hospital department documented in this encounter Visit Diagnoses Diagnosis Anxiety state, unspecified- Primary documented in this encounter Additional Health Concerns Infection Onset Date Last Indicated Resolved Time COVID-19 06/15/2023 06/15/2023 07/05/2023 1:16 AM SYNTHETIC DEPARTMENT SUPERVISOR documented as of this encounter Care Teams Automotive Glass Technician Relationship Specialty Start Date End Date Tu Green MD PCP - General Internal Medicine 03/12/10 documented as of this encounter
--- OUTSIDE RECORDS SUMMARY | 2025-04-08 10:28 | XMS_ITS | Clinical Summary ---
Author Organization [facility] Address [address] [place] [address] Care Team Providers Care Truck Service Technician Name Role Phone Tu Green MD Primary Care Provider [phone] [facility],non-owned Affiliates and Associated Physician Practices is amultiple site organization consisting of ambulatory clinics and hospital sitesin [place], [place], [place] and [place]. This disclosure is being madepursuant to the Care Everywhere program and may not contain all information available regarding this patient. Last updated 18.[facility] Allergies No known active allergies Medications * Be aware that medications may not be up to date on this document. Alwaysverify current medications with the patient. colesevelam (Welchol) 625 MG tablet Take 1 (one) tablet by mouth 2 times daily with morning and evening meal 4 Active pantoprazole EC (Protonix) 40 MG tablet Take 1 (one) tablet by mouth once daily 4 Active nebivolol (Bystolic) 10 MG tablet Take 1 (one) tablet by mouth once daily 4 Active tadalafil (Cialis) 5 MG tablet Take 1 (one) tablet by mouth once daily as needed 4 Active testosterone cypionate (Depo-Testoster one) 200 MG/ML injection 4 Active amphetamine-dex troamphetamine (Adderall) 30 MG tablet 4 Active NA-K-MG sulfates (Suprep Bowel Prep Kit) 17.5-3.13-1.6 GM/177ML solution Please use the directions that have been provided by your physician's office. 1 kit 4 Active Active Problems Problem Noted Date Diagnosed Date Diverticulosis of colon 04/05/2024 History of adenomatous polyp of colon 04/05/2024 Overview (04/05/2024): Dr. 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 Gender Identity Not on file Sexual Orientation Not on file Plan of Treatment Health Maintenance Due Date Last Done Comments CT COLONOGRAPHY - COLON CA SCREENING 1977 FIT - COLON CA SCREENING 1977 FLEX SIG - COLON CA SCREENING 1977 HIV SCREENING 1992 HEPATITIS C SCREENING 04/19/1995 HEPATITIS B VACCINE (1 of 3 - 19+ 3-dose series) 1996 DEPRESSION SCREENING 06/13/2024 COVID-19 VACCINE (1 - 2023-2 5 season) 2025 INFLUENZA VACCINE (#1) 2025 COLOGUARD (AGES 45-75) - COL ON CA SCREENING 04/05/2026 04/05/2023 ZOSTER VACCINE (1 of 2) 2027 DTAP/TDAP/TD VACCINES (2 - T d or Tdap) 01/11/2029 01/11/2019 LIPID TESTING 03/19/2029 03/19/2024 COLONOSCOPY - COLON CA SCREENING 04/03/2029 04/03/20 Colorectal Cancer Screening 04/03/2029 COLON MONITORING 04/03/2034 04/03/2024 HIB VACCINE Aged Out No longer eligi ble based on patient's age to complete this topic HPV VACCINE Aged Out No longer eligi ble based on patient's age to complete this topic MENINGOCOCCAL (Group B) VACC INE SHARED DECISION-MAKING Aged Out No longer eligibl e based on patient's age to complete this topic MENINGOCOCCAL GROUPS A/C/Y/W VACCINE Aged Out No longer eligible b ased on patient's age to complete this topic PNEUMOCOCCAL VACCINE Aged Out No long er eligible based on patient's age to complete this topic Procedures Procedure Name Priority Date/Time Associated Diagnosis Comments ENDOSCOPY, COLON, SCREENING Routine 04/03/2024 Family hx colonic polyps from Last 3 Months or Most Recently Relevant to Health Maintenance Results * Endoscopy, Colon, Screening (04/03/2024) us Chivo Fierro MD GI PROCEDURE ORDERABLES Final Result from Last 3 Months or Most Recently Relevant to Health Maintenance Insurance [facility] Care Teams Truck Service Technician Relationship Specialty Start Date End Date Tu Green MD [address] [place] [address] [address] [place] [address] PCP - General Internal Medicine 01/11/19
--- OUTSIDE RECORDS SUMMARY | 2025-04-08 10:28 | XMS_ITS | Clinical Summary ---
Author Organization [facility] Address [address] [place] [address] Care Team Providers Care Director Peoplesoft Name Role Phone Tu Green MD Primary Care Provider [phone] Allergies Active Allergy Reactions Criticality Noted Date Comments Minocycline Angioedema High 09/20/[address] (PROTONIX) 40 mg EC tablet TAKE 1 TABLET BY MOUTH EVERY DAY 11/25/2017 Active famotidine (PEPCID) 20 mg tablet Take 1 tablet (20 mg total) by mouth 2 (two) times a day. 30 tablet 12/12/2017 Active labetalol (NORMODYNE,JIMENEZ DATE) 100 mg tablet Take 1 tablet (100 mg total) by mouth 2 (two) times a day. 60 tablet 12/12/2017 Active acetaminophen (TYLENOL) 500 mg tablet Take 1 tablet (500 mg total) by mouth every 6 (six) hours 30 tablet 12/17/2024 Active cyclobenzaprine (FLEXERIL) 10 mg tablet Take 1 tablet (10 mg total) by mouth 3 (three) times a day 21 tablet 12/17/2024 Active docusate sodium (COLACE) 100 mg capsuleIndicati ons:constipatio n Take 1 capsule (100 mg total) by mouth 2 (two) times a day 10 capsule 12/17/2024 Active oxyCODONE (ROXICODONE) 5 mg immediate release tabletIndicatio ns:Pain Take 1 tablet (5 mg total) by mouth every 4 (four) hours as needed for pain 10 tablet 12/17/2024 Active Active Problems Problem Noted Date Diagnosed Date Foreign body (FB) in soft tissue 12/16/2024 Diverticulosis of colon 04/05/2024 Benign hypertension 03/10/2018 Surgical History Surgery Date Site/Laterality Comments VASECTOMY Medical History Medical History Date Comments Heart burn Social History Tobacco Use Types Packs/Day Years Used Date Smoking Tobacco: Former Smokeless Tobacco: Never Personal Safety Answer Date Recorded Have you ever been in or are you currently in a harmful physical or emotional relationship or is someone making you feel afraid or unsafe? 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 Sexual Orientation Straight 05/10/2022 7: 10 PM WARDSPERSON Obstetrics History Last Filed Vital Signs Vital Sign Reading Time Taken Comments Blood Pressure 110/61 12/17/2024 6:05 AM CDT Pulse 57 12/17/2024 6:05 AM CDT Temperature 36.4 C (97.5 F) 12/17/2024 6:05 AM CDT Respiratory Rate 18 12/17/2024 6:05 AM CDT Oxygen Saturation 95% 12/17/2024 6:05 AM CDT Inhaled Oxygen Concentration - - Weight 79.4 kg (175 lb) 12/16/2024 6:45 AM CDT Height 165.1 cm (5' 5) 12/16/2024 6:45 AM CDT Body Mass Index 29.12 12/16/2024 6:45 AM CDT Plan of Treatment Health Maintenance Due Date Last Done Comments Colon Cancer Screening-Colonoscopy 1977 Depression Screening 1977 Hepatitis C Screening 1977 Hepatitis B Screening 1995 Regular Well Visit/Exam 18-64 1995 Covid-19 Vaccine (3 - 2024-2 6 season) 2025 03/10/2021, 02/17/2021 Influenza Vaccine (#1) 2025 DTaP/Tdap/Td Vaccine (4 - Td or Tdap) 12/15/2034 12/15/2024, 01/11/2019, 10/03/2018 Pneumococcal vaccine <65 Aged Out No longer eligible based on patient's age to complete this topic Insurance ANTHEM ACCESS CHOICE ANTHEM ACCESS CHOICE Advance Directives For more information, please contact: [phone] * Full Code (Latest Code Status on File) Date Activated Date Inactivated Comments 12/16/2024 9:30 AM 12/17/2024 1:34 PM Care Teams Director Peoplesoft Relationship Specialty Start Date End Date Tu Green MD PCP - General 01/25/18
== END 2025-04-08 10:11 | disposition home or self-care (01) ==
PROVIDERS: Emergency Provider Nurse Practitioner
DX: J32.9 Chronic sinusitis, unspecified (principal); Z20.822 Contact with and (suspected) exposure to COVID-19; I10 Essential (primary) hypertension; K21.9 Gastro-esophageal reflux disease without esophagitis
CPT/HCPCS: 87081; 87426; 87804; 87880; 99213; G0463